=== PATIENT | female | born 1965 | race Caucasian/White ===

== ENCOUNTER 2022-05-25 14:25 | Outpatient (CLI) | payer MEDICAID, SELFPAY ==
--- NOTE | 2022-05-25 14:40 | CRLHL7_ITS ---
For Patients: As a result of the Cures Act, medical imaging exams and procedure reports are released immediately into your electronic medical record. You may view this report before your referring provider. If you have questions, please contact your health care provider. BILATERAL SCREENING MAMMOGRAM WITH COMPUTER-AIDED DETECTION AND TOMOSYNTHESIS TECHNIQUE: CC and MLO views were obtained. These mammographic images have been obtained using full-field digital technique. These mammographic images were interpreted with the benefit of computer-aided detection. Breast Tomosynthesis was used in this interpretation. COMPARISON FILM: Left breast US 01/13/21, 01/06/21 screen, 09/02/18, Right breast US 06/21/17, 06/15/17. FINDINGS: The breasts are heterogeneously dense, which may obscure small masses IMPRESSION: There is no radiographic evidence for malignancy. ASSESSMENT: BI-RADS Category 1: Negative RECOMMENDATION: Routine screening mammogram in 1 year. A lay language report of this examination will be provided to the patient. Bryce Yao M.D. Diagnostic Radiologist [email or web address] PEGGY/Dictated by: Bryce Yao MD @ 05/26/2022 9:05:00 AM (Electronically Signed)
== END 2022-05-25 14:26 | disposition home or self-care (01) ==
LOC: MAMMO 14:25
PROVIDERS: Visit Provider Obstetrics & Gynecology
DX: Z12.31 Encounter for screening mammogram for malignant neoplasm of breast (principal); R92.2 Inconclusive mammogram
CPT/HCPCS: 77063; 77067

== ENCOUNTER 2022-05-25 14:39 | Outpatient (CLI) | payer MEDICAID, SELFPAY ==
[2022-05-25 19:33] LABS: Cholesterol* 277 mg/dL (90-199); HDL Cholesterol* 75 mg/dL (>=50); LDL Cholesterol Calculated 167 mg/dL (<100); Triglycerides* 177 mg/dL (40-149)
== END 2022-05-25 14:40 | disposition home or self-care (01) ==
LOC: NFLDREF 14:40
PROVIDERS: Visit Provider Obstetrics & Gynecology
DX: Z12.31 Encounter for screening mammogram for malignant neoplasm of breast (principal); E78.5 Hyperlipidemia, unspecified
CPT/HCPCS: 77063; 77067; 80061; 87624; 88175

== ENCOUNTER 2022-05-29 14:17 | Emergency (ER) | payer MEDICAID, SELFPAY ==
[2022-05-29 14:31] VITALS: BP 153/94; PULSE 90; RESP 16; TEMP 36.6; O2SAT 98; BMI 24.0
--- NOTE | 2022-05-29 14:53 | ED.GIBLEED ---
HPI - GI Bleed General Chief complaint: GI Bleed Stated complaint: Blood in stool Time Seen by Provider: 05/29/22 14:39 History of Present Illness HPI Narrative: This 56-year-old female comes in because of a few episodes of bright red blood in the toilet when having a bowel movement. She did have a regular history and physical just a couple days ago. It was after this that she began having bright red blood in the toilet. She states that she had a colonoscopy with normal results about 5-7 years ago. She does report some sense of fullness or pressure in her abdomen. She does have pre-existing low back pain radiating down her right leg typical of a lumbar radiculopathy. She has been taking Celebrex for this. She also had a surgery this year on her cervical spine. Related Data Home Medications Medication Instructions Recorded Confirmed acetaminophen 160 mg/5 mL oral 160 mg PO 05/25/22 05/25/22 suspension (Children's Acetaminophen) gabapentin 300 mg capsule 300 mg PO QDAY 05/25/22 05/25/22 Previous Rx's Medication Instructions Recorded celecoxib 200 mg capsule 200 mg PO BID PRN pain #180 caps 05/15/22 Allergies Allergy/AdvReac Type Severity Reaction Status Date / Time No Known Drug Allergies Allergy Verified 05/25/22 13:40 Review of Systems Status of ROS: Reports: 10 or more systems reviewed and unremarkable except as noted in History and below Narrative: Constitutional: No fevers, no weight gain or loss. Eyes: No discharge. No vision changes. HENT: No congestion, no sore throat, no ear pain. Cardiovascular: No chest pain, no palpitations. Respiratory: No shortness of breath, no wheezes, no cough. Gastrointestinal: Mild diffuse abdominal pain, no vomiting, no diarrhea. Bright red blood in the toilet as described above. Genitourinary: No dysuria, no hematuria. Musculoskeletal: Normal range of motion. Chronic low back pain radiating down the right leg. Skin: No rashes, no pruritis. Neurological: No dizziness, weakness, sensory change, speech change. Endo/Heme/Allergies: No bruising or bleeding. No polydipsia. Pysch: no suicidality, no anxiety, no insomnia. All other systems reviewed and are negative. [facility] Medical History (Updated 05/29/22 @ 16:45 by Bipin Hanks MD) Abnormal electromyography Arthralgia Back pain (05/31/15) Cervical vertebral fusion (01/13/22) Fusion of toes History of depression Hypertriglyceridemia Inguinal hernia Lateral epicondylitis Mixed stress and urge urinary incontinence Osteopenia Vitamin D insufficiency Surgical History (Updated 05/25/22 @ 13:55 by Karlene Peres MD) History of pubovaginal sling Status post bunionectomy Status post hernia repair Social History Smoking Status: Former smoker Little interest or pleasure in doing things: not at all Feeling down, depressed, or hopeless: not at all Exam Narrative: Exam Narrative: Constitutional: Well-developed, well-nourished, no acute distress. HEENT: Normocephalic, atraumatic. Neck: Normal range of motion. Nontender. Supple. Heart: Regular. No murmurs. Normal rate. Intact distal pulses. Lungs: Clear to auscultation. No chest discomfort. No wheezes, rhonchi, or rales. Abdomen: Normal bowel sounds. Mild diffuse tenderness. No rebound tenderness. Genitalia: Deferred. Back: No midline tenderness. Normal range of motion. Extremities: Normal range of motion. No injury. Skin: Intact. No rash. Warm. No erythema or pallor. Neurologic: No altered sensation. No weakness. Alert and oriented. Psychiatric: No suicidality. No anxiety or depression. No insomnia. Nursing notes and vitals signs are reviewed. Const: Vital Signs, click to edit/add: Vital Signs - 24 hr 05/29/22 14:31 Temperature 97.9 F Pulse Rate [Right Pulse Oximeter] 90 Respiratory Rate 16 Blood Pressure [Ri ght Upper Arm] 153/94 H Pulse Oximetry 98 Oxygen Delivery Me thod Room Air Course Vital Signs Vital signs: Initial Vital Signs Temperature 97.9 F 05/29/22 14:31 Temperature Source Temporal Artery Scan 05/29/22 14:31 Pulse Rate 90 05/29/22 14:31 Respiratory Rate 16 05/29/22 14:31 Blood Pressure 153/94 H 05/29/22 14:31 Blood Pressure Mean 113 05/29/22 14:31 Blood Pressure Position Sitting 05/29/22 14:31 Pulse Oximetry 98 05/29/22 14:31 Oxygen Delivery Method 05/29/22 14:31 Vital Signs Temperature 97.9 F 05/29/22 14:31 Pulse Rate 90 05/29/22 14:31 Respiratory Rate 16 05/29/22 14:31 Blood Pressure 153/94 H 05/29/22 14:31 Pulse Oximetry 98 05/29/22 14:31 Oxygen Delivery Method 05/29/22 14:31 Temperature 97.9 F 05/29/22 14:31 Pulse Rate 90 05/29/22 14:31 Respiratory Rate 16 05/29/22 14:31 Blood Pressure 153/94 H 05/29/22 14:31 Pulse Oximetry 98 05/29/22 14:31 Oxygen Delivery Method 05/29/22 14:31 MDM - GI Bleed MDM Narrative Medical decision making narrative: This patient comes in report of constipation and some bright red blood in the toilet. She did have a colonoscopy about 5-7 years ago with normal results. She has had some constipation recently. An IV was established and labs were drawn which returned with reassuring findings. Her hemoglobin is satisfactory. CT imaging of the abdomen and pelvis shows a large amount of stool in the colon. There is some non specific thickening of the rectum. Most likely this woman's bright red blood in the toilet is related to hemorrhoid injury or anal fissure. However I explained to her that this cannot be confirmed officially without looking directly with a colonoscopy or flexible sigmoidoscopy. I advised her to follow-up with her primary physician for this study to occur. She is okay to return home. I did describe various treatment strategies for treating constipation. Lab Data Labs: Lab Results 05/29/22 05/29/22 Range/Units 15:36 15:36 WBC 6.00 (4.50-11.00) K/uL RBC 4.05 (4.00-5.20) m/uL Hgb 12.7 (12.0-16.0) gm/dL Hct 37.4 (33.0-51.0) % MCV 92 (80-100) fL MCH 31 (26-34) pg MCHC 34 (32-36) gm/dL RDW Coeff of Ciara 11.2 L (11.5-15.5) % Plt Count 227 (140-440) K/uL Neut % (Auto) 48.9 (42.0-72.0) % Lymph % (Auto) 43.5 (20-44) % Arthur % (Auto) 5.3 (0.0-11.0) % Eos % (Auto) 1.3 (0.0-7.0) % Baso % (Auto) 0.8 (0.0-3.0) % Neut # (Auto) 2.93 (1.7-7.0) K/uL Lymph # (Auto) 2.61 (0.90-2.90) K/uL Arthur # (Auto) 0.30 (0.00-0.90) K/UL Eos # (Auto) 0.08 (0.00-0.50) K/uL Baso # (Auto) 0.05 (0.00-0.30) K/uL Abs Immat Gran (auto) 0.01 (0.00-0.30) K/uL Sodium 140 (135-149) mmol/L Potassium 4.1 (3.6-5.1) mmol/L Chloride 104 (96-114) mmol/L Carbon Dioxide 27 (20-32) mmol/L BUN 18 (7-30) mg/dL Creatinine 0.6 (0.5-1.5) mg/dL Estimated Creat Clear 88.27 Estimated GFR 107 ml/min Glucose 103 (60-115) mg/dL Calcium 9.6 (8.4-10.6) mg/dL Imaging Data CT scan - abdomen: Radiologist's impression: 1. Symmetric wall thickening of the rectum is nonspecific and could be related to underdistention, inflammation, although underlying mass is also possible. Consider correlation with proctoscopy/colonoscopy. 2. Large volume of stool in the colon can be seen with constipation. 3. No other significant CT abnormality in the abdomen or pelvis. Discharge Plan Discharge Clinical Impression: Bright red rectal bleeding, Constipation Patient Disposition: Home, Self-Care Condition: Stable Additional Instructions: Use vtdy-ndx-qkmehtp medicines as needed and directed to treat constipation issues. Follow up with MD for colonoscopy or flexible sigmoidoscopy. Return if worsening symptoms occur. Prescriptions: No Action gabapentin 300 mg capsule 300 mg PO QDAY acetaminophen [Children's Acetaminophen] 160 mg/5 mL suspension 160 mg PO celecoxib 200 mg capsule 200 mg PO BID PRN (Reason: pain) Qty: 180 2RF Follow Up/Referrals: Provider,Not a Local [Primary Care Provider] - Stand Alone Forms: [facility] Info Instructions
--- OUTSIDE RECORDS SUMMARY | 2022-05-29 15:08 | XMS_ITS | Clinical Summary ---
:1965 Author Organization [facility] Address [address] [place] [address] Care Team Providers Name Role Phone Denise Castillo MD Primary Care Provider Source Comments You are receiving this document as you are listed as the primary care provider,follow-up provider, or the patient has been referred to you for consultation.This is in compliance with the Medicare and Medicaid EHR Incentive Program,which states Providers who transition their patient to another setting of careor provider of care or refers their patient to another provider of care shouldprovide summarycare record for each transition of care or referral. [facility] Allergies No known active allergies Medications Medication Sig Dispensed Refills Start Date End Date Status naproxen (AKA Take 1 tablet by 180 3 07/14/2005 Active NAPROSYN) 250 MG mouth daily (every tablet 24 hours). LW Addl Instr:Indicated for: Arthritis venlafaxine (EFFEXOR) Take 1 Tablet by 180 Tablet 3 12/22/2018 Active 37.5 MG tablet mouth two times a day. progesterone Take 1 Capsule by 90 Capsule 3 12/22/2018 Active micronized mouth daily. (PROMETRIUM) 100 MG capsule estradiol Apply 1 Patch to 0 12/22/2018 Ac tive (VIVELLEDOT) 0.05 skin two times a MG/24HR biweekly week. patch omeprazole (PRILOSEC) Take 1 Capsule by 90 Capsule 3 9 Active 20 MG capsule mouth daily. Take 1 hour before a meal. celecoxib (CELEBREX) Take 1 Capsule by 0 12/22/2018 Active 200 MG capsule mouth daily. acyclovir (ZOVIRAX) Take 1 Tablet by 0 12/22/2018 Active 400 MG tablet mouth three times a day as needed. desogestrel-ethinyl Take 1 Tablet by 90 Tablet 3 12/22/2018 Active estradiol (KARIVA) mouth daily. 0.15-0.02/0.01 MG (/5) tablet TURMERIC OR 0 Active loratadine (CLARITIN) Take 10 mg by 0 Active 10 MG tablet mouth daily. omega-3 fatty acids Take 2 g by mouth 0 Active (MAXEPA,FISHOIL) 1000 daily. MG capsule Glucosamine-Chondroit 0 Active -Vit C-Mn (GLUCOSAMINE 1500 COMPLEX OR) valACYclovir Take 1 Tablet by 0 01/27/2019 Active (VALTREX) 1 g tablet mouth two times a day. Active Problems Problem Noted Date Depression 01/13/2019 Back pain 01/13/2019 Postmenopausal status (age-related) (natural) 01/14/20 21 Family history of rheumatoid arthritis 01/13/2019 Neck pain 01/13/2019 Social History Tobacco Use Types Packs/Day Years Used Date Smoking Tobacco: Former Smokeless Tobacco: Never Alcohol Use Standard Drinks/Week Comments Never 0 (1 standard drink = 0.6 oz pure alcoho l) Alcohol Habits Answer Date Recorded How often do you have a drink containing alcohol? Never 01/27/2019 How many drinks containing alcohol do you have on a typical Not asked day when you are drinking? How often do you have six or more drinks on one occasion? 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 Respiratory Rate 16 07/14/2005 12:01 PM ROTARY RIG ENGINE OPERATOR Oxygen Saturation - - Inhaled Oxygen Concentration - - Weight 50.3 kg (111 lb) 01/27/2019 10:49 AM CDT Height - - Body Mass Index - - Plan of Treatment Health Maintenance Due Date Last Done Comments Cervical Cancer Screening 1965 Due Colon Cancer Screening Plan 1965 Due Hep C Screening (Preventive 1965 Services) HepB (1) 1965 Mammogram 1965 COVID-19 Vaccine (#1) 1965 HIV Screening (Preventive 1983 Services) Adult Preventive Visit 1985 Cholesterol 2012 Influenza (#1) 2022 05/04/2020, 06/29/2019, 06/19/2018, Additional history exists DTaP/Tdap/Td (2 - Tdap) 02/15/2025 02/15/2015 Zoster/Shingles Completed 11/05/2019, 07/14/2019 HepA Aged Out No longer eligib le based on patient 's age to complete this topic Hib Aged Out No longer eligib le based on patient 's age to complete this topic IPV (Polio) Aged Out No longer eligib le based on patient 's age to complete this topic MCV4 Aged Out No longer eligib le based on patient 's age to complete this topic Pneumococcal Aged Out No longer eligib le based on patient 's age to complete this topic Care Teams Dental Scheduling Coordinator Relationship Specialty Start Date End Date Denise Castillo MD PCP - General Family Practice 12/14/[address] [place] [id number]
--- OUTSIDE RECORDS SUMMARY | 2022-05-29 15:08 | XMS_ITS | Encounter Summary ---
:1965 Author Organization [facility] Address [address] [place] [address] Care Team Providers Name Role Phone Denise Castillo MD Primary Care Provider Encounter Details Date Type Department Care Team Description 01/30/2019 Notes/Orders Kayla Rheumatol dai Sargent, [address] [place] [address] [address] [facility] [phone] [facility] N [phone] (Wo rk) Social History Tobacco Use Types Packs/Day Years [...] Assigned at Date Recorded Not on file documented as of this encounter Plan of Treatment Not on filedocumented as of this encounter Visit Diagnoses Not on filedocumented in this encounter Care Teams Gunite Mixer Relationship Specialty Start Date End Date Denise Castillo MD PCP - General Family Practice 12/14/[address] [place] [id number] documented as of this encounter
--- OUTSIDE RECORDS SUMMARY | 2022-05-29 15:09 | XMS_ITS ---
:1965 Author Care Team Providers Name Role Phone Reina Mendoza Primary Care Provider Unavailable Allergies Code Code System Name Reaction Severity Status Onset NKDA ? Medications Name Status Start Date Stop Date ? ? celecoxib 200 mg capsule Active ? Not kena ilable ciclopirox 8 % topical solution Active ? Not available gabapentin 300 mg capsule Active ? Not av ailable lorazepam 1 mg tablet Active ? Not availa ble methylprednisolone 4 mg tablets in a dose pack Active ? Not available Problems None recorded. Procedures None recorded. Results Lab Results Date Name Specimen Result Interpretation Description Value Range Status Address ? 06/24/2021 SARS CoV 2 RNA, Nose (nasal ? Result negative ? ? [facility] QL, DEIRDRE+probe, passage) [facility] [place]: [address] , [place] Past Encounters 06/24/2021 Exposure to SARS-CoV-2; Cough Reina Mendoza PA-C: [address], [place] [address], Ph. Social History Tobacco Smoking Status Never Smoker Vaccine List Vaccine Type COVID-19, mRNA, LNP-S, PF, 30 mcg/0.3 mL dose ([employer] 01/25/2021 02/15/2021 influenza, injectable, quadrivalent, pre servative free 06/05/2015 06/24/2017 06/19/2018 05/04/2020 influenza, recombinant, quadrIvalent,inj ectable, preservative free 06/29/2019 influenza, seasonal, injectable 06/11/2005 08/31/2006 06/24/2007 07/29/2010 05/09/2011 06/03/2013 influenza, seasonal, injectable, preserv ative free 08/01/2012 07/06/2014 06/07/2016 Tdap 02/15/2015 zoster recombinant 07/14/2019 11/05/2019 Plan of Care Reminders Provider Appointments None recorded. ? ? Lab None recorded. ? ? Referral None recorded. ? ? Procedures None recorded. ? ? Surgeries None recorded. ? ? Imaging None recorded. ? ? Vitals Blood Pressure 121/78 mm[Hg]
--- OUTSIDE RECORDS SUMMARY | 2022-05-29 15:09 | XMS_ITS | Encounter Summary ---
:[address] [facility] Address [address], [place] [address] Care Team Providers Name Role Phone Denise Castillo MD Primary Care Provider Reason for Visit Reason Comments RESULTS, TEST Encounter Details Date Type Department Care Team Description 01/20/2019 Notes/Orders [facility] [address] Sargent MD [address] [place] [address] [place], [place] [id number] (Wo rk) Social History Tobacco Use Types Packs/Day Years Used Date Smoking Tobacco: Never Assessed Alcohol Habits Answer Date Recorded How often [...] on file documented as of this encounter Progress Notes Faheem Sargent MD - 01/20/2019 8:35 AM CDT Outside records: On 12/16/2018, nerve conduction study demonstrated: 1. 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 There is no further electrical evidence to suggest a right-sided cervical motor radiculopathy, brachial plexopathy or neuropathyotherwise to correlate with this patient symptoms at this time. documented in this encounter Plan of Treatment Not on filedocumented as of this encounter Visit Diagnoses Not on filedocumented in this encounter Care Teams Men'S Locker Room Attendant Relationship Specialty Start Date End Date Denise Castillo MD PCP - General Family Practice 12/14/[address] [place] [id number] documented as of this encounter
--- OUTSIDE RECORDS SUMMARY | 2022-05-29 15:09 | XMS_ITS | Encounter Summary ---
:1965 Author Organization [facility] Address [address], [place] [address] Care Team Providers Name Role Phone Unavailable Primary Care Provider Unavailable Encounter Details Date Type Department Care Team Description 11/06/2003 PN Conversion Only [facility] Sola Srivastava, [address] [facility] [place] [address] Social History Tobacco Use Types Packs/Day Years [...] documented as of this encounter Progress Notes Sola Srivastava APRN, CNP - 11/06/2003 12:01 AM CST Progress Notes signed by Sola Srivastava APRN, CNP at 05/05/05 1415 Author: TAYLOR Dunn Service: (none) Author Type: Nurse Practitioner Filed: 12/18/10 2209 Note Time: 11/06/03 0001 Status: Signed Telemarketing Agent: TAYLOR Dunn (Nurse Practitioner) NAME: ANAY ROWAN MR: [id number] ACCT: [id number] VISIT: [id number] DICTATING CLINICIAN: SOLA SRIVASTAVA NP JOB: [id number] CLINIC PROGRESS NOTE DATE OF VISIT: 11/06/2003 ASSESSMENT: Perioral dermatitis. PLAN: Discussed diagnosis theories with patient and . Recommend continuing gentle cleansing. Cetaphil moisturizer given. We will treat topically due to patient's with erythromycin 2% solution 60 ml with year refills given to be used b.i.d. Also given samples of Dermatop x3 to be applied to facial rash two times a day for five to seven days and if needed will fill prescription for DesOwen cream 30 gm with no refills given to be applied b.i.d. x5-7 days p.r.n. Patient is aware that condition may wax and wane and frequently is seen in patients. Follow up p.r.n. for persistence. FINAL IMPRESSION: Perioral dermatitis. SUBJECTIVE: : 1965. Patient is a 38-year-old Tristanian female who is 37 weeks here for initial evaluation of a rash that started about two months back that is quite itchy around the nose area. She has had some activity below the mouth as well. Washes with Aveeno. Does not use any moisturizer. Has not tried any rmne-oci-zccbpkb products. She had a history of similar type rash years back. Has not been previously . Does use an antidandruff shampoo of Head and Shoulders. PAST MEDICAL HISTORY: Negative for additional chronic illness or surgeries. FAMILY HISTORY: Negative for similar rash. MEDICATIONS: vitamins. ADR/ALLERGIES: NONE. OBJECTIVE: On examination, patient is alert, oriented x3, well-groomed, pleasant, ranrug-dxtdotm-nhaanqr female in no acute distress. She has significant minute papules with scaling with an erythematous base along both alar grooves that is quite inflammatory in nature. There is a slight amount of inflammatory dermatitis in the left perioral area. Sclerae and conjunctivae are clear. Scalp is free of scale and inflammation. Neck, chest, and back are clear. BAS:[id number] C: 11/06/03 12:41 DOCUMENT: [id number] documented in this encounter Plan of Treatment Not on filedocumented as of this encounter Visit Diagnoses Not on filedocumented in this encounter
--- OUTSIDE RECORDS SUMMARY | 2022-05-29 15:09 | XMS_ITS | Encounter Summary ---
:1965 [facility] Address [address], [place] [address] Care Team Providers Name Role Phone Denise Castillo MD Primary Care Provider Reason for Visit Reason Comments Outside Records on File [facility]CS Appt. Needed Encounter Details Date Type Department Care Team Description 01/20/2019 Telephone [facility] [address] [facility], Outside Records on Rheumatology MD Faheem File (NCS); Appt. [address] [facility] [address] [facility] [place] [address] [phone] (Wo rk) Social History Tobacco Use Types [...] on file documented as of this encounter Nursing Notes Bozena Ohara LPN - 01/27/2019 10:41 AM CDT called 01/26 and scheduled pt for appt on 01/27/19 Gisell Hodge MA - 01/25/2019 3:20 PM CDT I left a message for patient to call back. Gisell Hodge MA - 01/24/2019 9:15 AM CDT I left a message for patient to call back. Linda Sosa CMA - 01/20/2019 10:[address] With official [address] interpreter assistance Jacqueline Anderson left voicemail for patient to call back Faheem Sargent MD - 01/20/2019 8:37 AM CDT Patient might need a certified court/medical interpreter. However, her can speak Macanese very well (he has an Lithuanian). Please let her know that I have reviewed the outside records on nerve conduction study. The results suggest that she has electrical evidence of right carpal tunnel syndrome but it seems that the compression of the nerve is at the wrist level, not from the neck level. And therefore, a cortisone injection into the carpal tunnel could potentially be helpful. Please schedule her to see me or a physician kindergarten teacher assistant to have this cortisone injection at her convenient time. documented in this encounter Plan of Treatment Not on filedocumented as of this encounter Visit Diagnoses Not on filedocumented in this encounter Care Teams Plant Technical Specialist Relationship Specialty Start Date End Date Denise Castillo MD PCP - General Family Practice 12/14/[address] [place] [id number] documented as of this encounter
--- OUTSIDE RECORDS SUMMARY | 2022-05-29 15:09 | XMS_ITS | Encounter Summary ---
:1965 Author Organization [facility] Address [address] [place] [address] Care Team Providers Name Role Phone Unavailable Primary Care Provider Unavailable Encounter Details Date Type Department Care Team Description 11/06/2003 PN Conversion Only [facility] [place] [address] [address] [place] [address] Social History Tobacco Use Types Packs/Day Years [...]
--- OUTSIDE RECORDS SUMMARY | 2022-05-29 15:09 | XMS_ITS | Encounter Summary ---
:1965 Author Organization [facility] Address [address], [place] [address] Care Team Providers Name Role Phone Denise Castillo MD Primary Care Provider Reason for Visit Reason Comments CONSULT Encounter Details Date Type Department Care Team Description 01/13/2019 Initial Consult Kayla Sargent, Neck pain ( Primary Dx); Rheumatology MD Faheem Other spondylosis with radiculopathy, ce rvical region; [address] [facility] [place] Cervical radi culopathy at C6; [facility] Cervical radiculopathy at C7; [place], [place] Back tisha n, unspecified back location, unspecified back pain laterality, unspecified chronicity; [id number] Family history of rheumatoid arthritis; [phone] Carpal tunnel s yndrome of right wrist (Work) Social History Tobacco Use Types Packs/Day Years [...] on file documented as of this encounter Last Filed Vital Signs Vital Sign Reading Time Taken Comments Blood Pressure 104/64 01/13/2019 1:28 PM CDT Pulse 69 01/13/2019 1:28 PM CDT Temperature - - Respiratory Rate - - Oxygen Saturation - - Inhaled Oxygen Concentration - - Weight 49.4 kg (109 lb) 01/13/2019 1:28 PM CDT Height - - Body Mass Index - - documented in this encounter Patient Instructions Patient InstructionsPaisansinsup, Tawatchai, MD - 01/13/2019 1:30 PM CDT Have the MRI cervical spines 06/2017 faxed to me at [phone], Attn: Dr. Gonzalez Have nerve conduction study at [facility] faxed to me. documented in this encounter Progress Notes Faheem Sargent MD - 01/13/2019 1:30 PM CDT Subjective: I was requested by Dr. Denise Castillo to evaluate the patient for back pain, family history of rheumatoid arthritis. History of present illness: A 53-year-old female who came in here for an evaluation of chronic back pain, family history of rheumatoid arthritis. The patient has had longstanding of posterior neck and lower back pain for several years. The symptoms of her neck have been more during the past one year. Due to the family history of rheumatoid arthritis in her sister, she would like to make sure that she does not have rheumatoid arthritis. She fell on the stairs when she was at 5 years ago and hit her head. There was no known fracture. There has been no additional injury over her neck or back during adulthood. Her lower back symptoms are usually precipitated by prolonged standing, walking or bending during work. It intermittent radiates to the back of her right thigh down to her leg. This is not associated with paresthesia, muscle weakness, saddle paresthesia or incontinence, dysuria, fever, reduced appetite or weight loss or known history of fracture. The symptom over her neck is posterior and lateralized to the right side. They are usually present when turning her neck while working or at night time. The symptoms frequently radiate down to the right medial scapular or trapezius area. Intermittently at night time, she also feels paresthesia involving right thumb to fourth finger, sparing the fifth finger. However, she could not tell me exactly if the neck and right hand symptoms are consistently present together or these symptoms are present independently. She brought with her a CD of the MRI of the cervical spines performed in 06/2017 without accompanied reports. As my office does not have a CD ROM to open the CD, I requested her to have the re sults faxed to me to review. She was told to have significant cervical spondylosis. She actually underwent cortisone injection approximately a year ago and that first injection was quite helpful for quite sometimes. The second injection was given in August of 2018 but it was not significantly helpfuland he was very temporarily. The natures of the injetction (epidural vs transforaminal) are unknown to her. She has not been evaluated by a neurosurgeon. She has been [facility] her [facility] back [facility]. She recalled that she was [facility] to have a procedure which is suggestive of nerve conduction study in November of 2018. She has not known the result. She recalled that the result might have been forwarded to her primary care provider but she does not know the detailed result. I also requested that she have these results forwared to me to review. She does have clinically apparent osteoarthritis over her hands. I showed her several pictures of swollen joints affected by rheumatoid arthritis and she has not noticed such findings. She has not had a blood test evaluation for rheumatoid arthritis. She reported no unusual skin rashes to suggest psoriasis, significant sicca symptoms, prior ocular symptoms to suggest iritis/uveitis, bleeding tendency, peptic ulcer disease/GI bleeding, known hepatic/renal disease. She takes occasional acetaminophen and that is not adequate. She currently takes Celebrex 200 mg twice a day and this only provides partial relief. Her sister has rheumatoid arthritis. Her father has intermittent gout. Her mother has shoulder and knee arthritis. There is no obvious family history of psoriasis, psoriatic arthritis, iritis/uveitis, spondylitis, inflammatory bowel disease, systemic lupus or lupus related conditions. A complete review of the systems is otherwise unremarkable except for hair thinning, fingers turn white with cold exposure but not associated with tightening of the skin open -wound digital ulcer, occasional acid reflux. Past Medical History: Post menopause. Depression. Back and neck pain. 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 Originally came from [place]. She currently lives in [place], [place]. She neither smokes nor drinks. with a 15-year-old son. Current medications: Please see the most updated medication lists in the EMR. These are reviewed. Adverse drug reactions: No known adverse drug reaction. Physical Examination: BP 104/64 (BP Location: Right Arm, BP Cuff Size: Adult Regular) Pulse 69 Wt 109 lb (49.4 kg) she is General appearance: A middle-aged female who was not in acute physical distress. Skin: No rash, tophus, nodules, open-wound ulcers, Raynaud changes, telangiectasia, sclerodermatous and dermatomyositis skin changes, psoriasis, psoriatic nail or anything suggesting vasculitis, erythema nodosum. Normal nailfold capillaries. HEENT: No psoriasis on the scalp. No conjunctivitis, scleritis or active uveitis or synaechia. Normal extra ocular movements. No sinus tenderness. No malar rash, discoid rash, oral or nasal mucosal ulcers. No nasal septal perforation. Respiratory: Normal respiratory effort. Lungs are clear with good breath sounds. Heart: RR without audible murmurs, rubs, or gallops. Musculoskeletal exams: All 4 extremities were examined. Typical osteoarthritic changes the chart notes and Heberden's nodes at various decrease of her finger knuckle joints. Squaring of bilateral firstCMC joints. No significant synovitis/inflammatory arthritis/dactylitis/enthesitis or effusion in anyjoints. Normal muscle power and tone proximally and distally on both upper and lower extremities. Negative straight leg raising test. Positive Tinel sign over the right wrist joint area. Lateral neck rotation and lateral neck flexion could reproduce her right posterolateral neck areas but I could not reproduce the right hand paresthesia. The right hand paresthesia was reproducible withPhalen???s test and right Tinel???s sign as above. Presence of normal and equal deep tendon reflexesof both upper lower extremities. Laboratory exams: No laboratory evaluation within [facility] system since 2004. Outside records: One 11/15/2018, normal TSH. White blood cells 6.8, hemoglobin 12. Five. On 07/29/2018, glucose 83, serum creatinine 0.9, normal electrolytes. Albumin 4.2. Normal AST/ALT/alkaline phosphatase and total bilirubin. Hemoglobin 12.2, platelet count 259, white blood cells 6.8. Assessment and plans: 1. Multiple joint osteoarthritis: Fingers, cervical and lumbar spines. 2. Family history of rheumatoid arthritis, no convincing evidence of autoimmune inflammatory arthritis including rheumatoid arthritis in this patient. 3. History of possible right C6-C7 radiculopathy versus carpal tunnel syndrome with compressive neuropathy over the right wrist area. Pain is rated as 7.5. RAPID 3 score is 12.7. First of all, I ensured her clinically that I do not see a clinical evidence of rheumatoid arthritis. She has no clinical synovitis or joint effusion to suggest an autoimmune inflammatory condition. She has clinically apparent osteoarthritis over her hands and prior history of degenerative arthritis over the spines. The longstanding posterior neck and lower back pain are mechanical in nature. Although this was not available for me to review, she was told to have significant cervical spondylosis. The posterior necksymptoms are actually reproducible on examination today with neck movement. The right hand symptoms a re suggestive of median nerve distribution. She could not tell me exactly whether her right hand symptoms are always concurrent with a posterior neck symptoms or the hand symptoms present separately for the neck symptoms. If this is radiculopathy, the symptoms are suggestive of right C5 and C6 radiculo pathies. However, if she has no radiculopathy, the right hand symptoms are most likely secondary to carpal tunnel syndrome with the compression at the right wrist level. This latter clinical impressionis suggested by positive Phalen's test and Tinel's sign on examination today. She recently had a nerve conduction study. She has not been told about the results. I discussed with her and her about my clinical impression as above. I told her that she doesnot have rheumatoid arthritis despite a strong family history. I counseled her about symptoms and physical findings to suggest rheumatoid arthritis and she will let me know when this is present at any time and I will immediately get her back here for a re-evaluation. I did not offer blood test evaluation for rheumatoid arthritis due to the absence of clinical suspicion. This was agreeable with the patient. I told the patient to obtain the results of the MRI of the cervical spines in 06/2017 and the results of the recent nerve conduction study and to have them faxed to me to review. If the nerve conduction study does not show evidence of radiculopathy, I will suggest cortisone injection into the carpal tunnel area and I can help perform this procedure for her. However, if the nerve conduction study shows evidence of right C5 and/or C6 radiculopathy, I will suggest that the patient go back to [facility] to consider an evaluation with a neurosurgeon for a possible surgical intervention as she has not had a significant improvement with medical treatment and recent cortisone injection has not been adequate. For long-term management of cervical spondylosis, I do not have additional medical treatment recommendation. She will continue physical therapy, the use of as needed acetaminophen or anti-inflammatory medication, and possible additional use of tricyclic antidepressant or anti-epileptic medication such as gabapentin and I will leave these to her provider at the [facility]. I told her that I will review the requested outside records of MRI cervical spines and nerve conduction study and will let her know about my further recommendation as above. Total time 60 minutes, 40 minutes counseling. CC: Denise Castillo M.D. [address] [place] [id number] Addendum: Additional outside records: On 04/04/2015, x-ray of the cervical spines demonstrated scoliosis. There is curvature of the cervical spine convex to was the right and thorax 6 pt convex to the left. No subluxation. Disc spaces appear normal. No fracture deformities visible. Prevertebral soft tissue thickness is normal. The cervical lordosis is straighten from C2-C5. X-rays of the lumbar spines demonstrated five lumbar vertebra. Mild scoliotic curve involving the right thoracolumbar spine, which is convex towards the right. There is no subluxation. The disc spaces are normal. No intrinsic bony lesions. A moderate large amount of colonic stool in the transverse colon, splenic flexure and hepatic flexure. On 04/04/2015, negative Lyme serology. On 07/05/2017, MRI of the cervical spines demonstrated: Degenerative cervical spondylosis with the following findings: 1. Posterior and right para midline annular tear and disc herniation, C5-C6, indenting the spinal cord ventrally. This appears increased in size compared to the prior studies. There is increased protrusion of the disc at these level with maximum extension. 2. Dorsal bulging of the C4-5 disc, indenting the spinal cord, increased with maximum extension. 3. Dorsal annular bulging at C3-4, with increased disc protrusion and bulging associated with maximum extension. On 06/24/2016, ESR 8. On 06/24/2017, ESR 7. Negative rheumatoid factor. On 04/04/2015, negative rheumatoid factor. On 07/29/2018, white blood cells 6.8, hemoglobin 12.2, platelet count 250 night. Glucose 83. Serum creatinine 0.6. Normal AST/ALT. 25 hydroxy vitamin-D 49. documented in this encounter Plan of Treatment Not on filedocumented as of this encounter Visit Diagnoses Diagnosis Neck pain - Primary Cervicalgia Other spondylosis with radiculopathy, ce rvical region ([facility]) Cervical radiculopathy at C6 Brachial neuritis or radiculitis nos Cervical radiculopathy at C7 Brachial neuritis or radiculitis nos Back pain, unspecified back location, un specified back pain laterality, unspecified chronicity Family history of rheumatoid arthritis Family history of arthritis Carpal tunnel syndrome of right wrist Carpal tunnel syndrome documented in this encounter Care Teams Food Quality Technician Relationship Specialty Start Date End Date Denise Castillo MD PCP - General Family Practice 12/14/[address] [place] [address] documented as of this encounter
--- OUTSIDE RECORDS SUMMARY | 2022-05-29 15:09 | XMS_ITS | Encounter Summary ---
:1965 Author Organization [facility] Address [address] [address] Care Team Providers Name Role Phone Unavailable Primary Care Provider Unavailable Encounter Details Date Type Department Care Team Description 12/30/2010 PN Conversion Only CONVERSION CONVERSION Social History Tobacco Use Types Packs/Day Years [...]
--- OUTSIDE RECORDS SUMMARY | 2022-05-29 15:09 | XMS_ITS | Clinical Summary ---
:1965 Author Organization [employer] [facility] [place] [address] Care Team Providers Name Role Phone Mallory Ferguson MD Primary Care Provider Allergies No known active allergies Medications Medication Sig Dispensed Refills Start End Status Date Date omeprazole (PRILOSEC) Take 20 mg by 0 12/23/19 Active 20 mg Delayed-Release mouth once 19 capsule daily if needed. valACYclovir (VALTREX) TAKE TWO 0 02/26/20 Active 1 gram tablet TABLETS BY 20 MOUTH AT ONSET AND TWO TABLETS 12 HOURS LATER. TAKE THE FIRST TWO TABLETS AT THE ONSET OF PAIN AND TINGLING IN THE LIP loratadine (CLARITIN) Take 10 mg by 0 Active 10 mg tablet mouth once daily. Docosahexanoic Take 2 g by 0 Act shar Acid-Eicosapent mouth once 120-180 mg cap daily. cholecalciferol Take 1,000 0 Act shar (VITAMIN D3) 1,000 units by mouth unit tablet once daily. ascorbic acid, vitamin Take 1,000 mg 0 Active C, (VITAMIN C) 1,000 by mouth 2 mg tablet times daily. TURMERIC ORAL Take 1 Tablet 0 Ac tive by mouth once daily. multivitamin with Take 1 Tablet 0 Active minerals by mouth once (MULTI-VITAMIN daily. W/MINERALS ORAL) acetaminophen Take 20.3 mL 472 mL 0 01/14/20 Act shar (TYLENOL) 160 mg/5 mL (649.6 mg) by 22 suspensionIndications: mouth every 4 Acute post-operative hours if pain needed (pain). cyclobenzaprine Take 1 Tablet 15 Tablet 0 01/15/20 Active (FLEXERIL) 5 mg (5 mg) by 22 tabletIndications: mouth every 8 Acute post-operative hours if pain needed for Muscle Spasm. gabapentin (NEURONTIN) Take 1 Capsule 90 Capsule 3 04/03/20 Active 300 mg (300 mg) by 22 capsuleIndications: mouth at Cervical radiculopathy bedtime. methylPREDNISolone Take by mouth 21 Tablet 0 01/16/20 Discontinued (MEDROL DOSEPAK) 4 mg as instructed (*Med tabletIndications: per packaging. complete/Regime Cervical stenosis of n spine complete/L evel of care ch sarath) oxyCODONE (ROXICODONE) Take 5 mL (5 100 mL 0 01/16/2005/02 Discontinued 5 mg/5 mL mg) by mouth (*Med solutionIndications: every 4 hours complete/Regime Acute post-operative if needed for n pain Pain. complete/L evel of care ch sarath) Active Problems Problem Noted Date Vitamin D insufficiency 01/13/2022 Depression 01/13/2019 Back pain 05/31/2015 Urinary incontinence 06/29/2011 Overview: Formatting of this note might be differe nt from the original. (Problem list name updated by automated process. Provider to review and confirm.) Hyperlipidemia LDL goal <160 01/14/2011 Esophageal reflux 06/10/2007 Sciatica 06/10/2007 Encounters Date Type Specialty Care Team Description 05/29/2022 Telephone Eulogio Sharpe Questio ns MD 05/26/2022 Lab Requisition Karlene Peres MD 03/31/2022 Refill Eulogio Sharpe, Refill Request (Gabapentin) from Last 3 Months Family History Medical History Relation Name Comments Rheum arthritis Sister Relation Name Status Comments Sister Social History Tobacco Use Types Packs/Day Years Used Date Former Smoker Smokeless Tobacco: Never Used Tobacco Cessation: Counseling Given: Yes Comments: 25-30 yrs ago quit Alcohol Use Standard Drinks/Week Comments Not Currently 0 (1 standard drink = 0.6 oz pure alcoho l) Sex Assigned at Date Recorded Not on file Obstetrics History Last Filed Vital Signs Vital Sign Reading Time Taken Comments Blood Pressure 123/69 01/15/2022 8:44 AM CDT Pulse 62 01/15/2022 8:44 AM CDT Temperature 36.6 ??C (97.9 ??F) 01/15/2022 8:44 AM CDT Respiratory Rate 16 01/15/2022 8:44 AM CDT Oxygen Saturation 99% 01/15/2022 8:44 AM CDT Inhaled Oxygen Concentration - - Weight 50.7 kg (111 lb 12.8 oz) 01/13/2022 6:52 AM CDT Height 149.9 cm (4' 11) 01/13/2022 6:52 AM CDT Body Mass Index 22.58 01/13/2022 6:52 AM CDT Plan of Treatment Health Maintenance Due Date Last Done Comments Tdap 1978 Depression screening for age 12+ 1979 BMI (ht and wt on same day) for age 18+ 1985 Hepatitis C screening for age 18-79 1985 Tetanus booster 1987 Colonoscopy through age 75 2012 Lipids for age 45-75 2012 Mammogram for age 45-75 2012 Zoster (shingles) series for age 50+ (1 of 2017 2) Pap test for age 21-65 06/24/2020 06/24/2017, 06/24/2017 COVID-19 vaccine series (3 - Booster for 04/12/2021 021, 01/25/2021 Pfizer series) Influenza for age 50-64 04/30/2022 Medical Devices Implanted Type Area Non Clinical Advisor Device Shelf Model / Identifier Expiration Serial / Lot Date 3.0 Mm Carito Screws, Titanium Right: [id number] / Implanted: Qty: 1 on 08/11/2021 by Rocael Gutiérrez DPM at [facility] Foot / [id number] [place] View Self Starting Variable Screw 4.0x12mm N/A: Spine [id number] / Implanted: Qty: 6 on 01/13/2022 by Marlene Benjamin MD at [facility] / Description: [place]IEW SELF STARTING [place] RIABLE SCREW 4.0X12MM Results Not on filefrom Last 3 Months Insurance Payer Benefit Plan / Subscriber ID Effective Dates Phone Addre ss Type Group [place] [id number] 2021-Present [address] [place] [address] Advance Directives Latest Code Status on File Code Status Date Activated Date Inactivated Comments Full Code 01/13/2022 12:15 PM 01/15/2022 6:58 PM Code Status Discussion: Unable to Assess Preferences, Provid er to review later Full Code 08/11/2021 6:39 AM 08/11/2021 1:59 PM Code Status Discussion: Unable to Assess Preferences, Provid er to review later Care Teams Coordinating Producer Relationship Specialty Start Date End Date Mallory Ferguson MD PCP - General 09/02/20 [address] [place] [address]
--- OUTSIDE RECORDS SUMMARY | 2022-05-29 15:09 | XMS_ITS | Encounter Summary ---
:1965 Author Organization [facility] Address [address], [place] [address] Care Team Providers Name Role Phone Unavailable Primary Care Provider Unavailable Encounter Details Date Type Department Care Team Description 07/14/2005 Office Visit [facility] Zulema Mustafa, [address] [address] [facility] [place] [address] [place] [phone] [place], [place] [address] Social History Tobacco Use Types Packs/Day Years [...] Sign Reading Time Taken Comments Blood Pressure 107/68 07/14/2005 12:01 PM PLAYGROUND MONITOR Pulse 73 07/14/2005 12:01 PM PLAYGROUND MONITOR Temperature 36.3 ??C (97.3 ??F) 07/14/2005 12:01 PM ORAL C: 36.3 C PLAYGROUND MONITOR Respiratory Rate 16 07/14/2005 12:01 PM PLAYGROUND MONITOR Oxygen Saturation - - Inhaled Oxygen Concentration - - Weight - - Height - - Body Mass Index - - documented in this encounter Progress Notes Zulema Mustafa PA-C - 07/14/2005 12:01 AM CST Progress Notes signed by Zulema Mustafa PA-C at 07/20/05 0748 Author: Zulema Mustafa PA-C Service: (none) Author Type: Resource Filed: 12/19/10 0936 Note Time: 07/14/052018 Status: Signed Client Care Representative: Zulema Mustafa PA-C (Resource) NAME: ANAY ROWAN MR: [id number] ACCT: [id number] VISIT: [id number] DICTATING CLINICIAN: ZULEMA MUSTAFA PA-C JOB: [id number] CLINIC PROGRESS NOTE DATE OF VISIT: 07/14/2005 SUBJECTIVE: A 40-year-old female who twisted her left foot today. Rates the pain as an 8 out of 10. Denies any radiation of pain, numbness or tingling. No prior history of injury. PAST MEDICAL HISTORY: None. MEDICATIONS: Reviewed by myself in Last[employer]. ADR/ALLERGIES: REVIEWED BY MYSELF IN [employer]ST[employer]. SOCIAL HISTORY: , here with . Does not smoke. OBJECTIVE: VS: BP: 107/68. T: 97.4. P: 73. R: 16. Well-developed, well-nourished female in no acute distress, alert and cooperative. LEFT FOOT: Skin is warm and dry. Dorsalis and pedal pulse intact. Capillary refill and sensation are intact. She has mild tenderness to palpation over the midfoot. No irregularity appreciated. No tenderness over the ankle area, tibia or fibula. X-rays ordered and reviewed by myself as negative. ASSESSMENT: Sprain to left foot. PLAN: Bert wrap to the area as directed. She was offered crutches, but declined at this time. If she decides that she would like crutches tomorrow, she may return to have them. Otherwise, should wear a proper shoe with a back, ice to the area, ibuprofen and follow up as needed. LAG:[id number] C: 07/15/05 01:51 DOCUMENT: [id number] GROUND MONITOR documented in this encounter Plan of Treatment Not on filedocumented as of this encounter Procedures Procedure Name Priority Date/Time Associated Diagnosis Comme nts XR FOOT LT 3+ VIEWS Routine 07/14/2005 12:29 PM R esults for this PLAYGROUND MONITOR procedure are i n the results section. documented in this encounter Results XR Foot Lt 3+ Views (07/14/2005 12:29 PM PLAYGROUND MONITOR) Anatomical Region Laterality Modality Lower Extremity, Foot Other Specimen (Source) Anatomical Location Collection Method / Collectio n Time Received Time / Laterality Volume Narrative 07/14/2005 12:29 PM PLAYGROUND MONITOR There is a mild hallux valgus deformity with a small to moderate associated bunion. ??No other abnormalit ies are identified. 100844/pb Dictating DARIAN AVELAR RADIOLOGIST Procedure Note Darian Perez - 10/30/2016 There is a mild hallux valgus deformity with a small to moderate associated bunion. No other abnormalitie s are identified. 533420/pb Dictating DARIAN AVELAR RADIOLOGIST Zulema Mustafa PA-C RAD GD documented in this encounter Visit Diagnoses Not on filedocumented in this encounter
--- OUTSIDE RECORDS SUMMARY | 2022-05-29 15:09 | XMS_ITS | Encounter Summary ---
:1965 Author Organization [facility] Address [address] [place] [address] Care Team Providers Name Role Phone Denise Castillo MD Primary Care Provider Reason for Referral (Routine) - Closed Specialty Diagnoses / Procedures Referred By Contact Refer red To Contact Diagnoses Carpal tunnel syndrome of right wrist Faheem Sargent Procedures Methylprednisolone 40 Mg Inj [address] [place], [place] [address] Referral ID Status Reason Start Date Expiration Date Visits Requ ested Visits Authorized [id number] Closed 01/27/2019 04/27/2020 1 1 Reason for Visit Reason Comments Follow-up Encounter Details Date Type Department Care Team Description 01/27/2019 Office Visit Kayla Rosetta, Carpal tunnel syndrome of right wrist (Primary Dx); Rheumatology MD Faheem Cervical radiculopathy at C[address] [place] [address] [facility] [phone] [place], [place] [id number] Social History Tobacco Use Types Packs/Day Years [...] Pulse 79 01/27/2019 10:49 AM CDT Temperature - - Respiratory Rate - - Oxygen Saturation - - Inhaled Oxygen Concentration - - Weight 50.3 kg (111 lb) 01/27/2019 10:49 AM CDT Height - - Body Mass Index - - documented in this encounter Progress Notes Faheem Sargent MD - 01/27/2019 10:45 AM CDT SUBJECTIVE: For right carpal tunnel cortisone injection. History of present illness: I saw her a few weeks ago for an evaluation to rule out rheumatoid arthritis. She has no clinical rheumatoid arthritis. She was found to have clinical cervical spondylosis with as well symptoms on the right hand consistent with dermatomal distributions of right C5 in maybe C6. However, it was not clear whether the radiculopathy is the result of nerve compression at the cervical spine level versus carpal tunnel syndrome with the compression at the wrist level. She had had a nerve conduction study at [facility] in November of 2018. She did not recall the results. She alsohad MRI of the cervical spines a few years ago and I did not have these results to review. She ventrally forwarded me this information. The nerve conduction study was performed on 12/16/2018.The results demonstrated right-sided median motor neuropathy at the wrist: Graded as moderate. Thereis no further electrical evidence to suggest a right-sided cervical motor radiculopathy, brachial ple xopathy or neuropathy otherwise to correlate with this patient symptoms at this time. The MRI of the cervical spines were performed on 07/05/2017 and the results demonstrated: Degenerative cervical spondylosis with the following findings: ?? 1. Posterior and right para midline annular tear and disc herniation, C5-C6, indenting the spinal cord ventrally. This appears increased in size compared to the prior studies. There is increased protrusion of the disc at these level with maximum extension. ?? 2. Dorsal bulging of the C4-5 disc, indenting the spinal cord, increased with maximum extension. ?? 3. Dorsal annular bulging at C3-4, with increased disc protrusion and bulging associated with maximum extension. In therefore, as the patient to come back here to consider a carpal tunnel cortisone injection as she is quite symptomatic especially at the night time. Past medical history, family and social history, current medications and adverse reactions were updated in EMR. Physical exams: BP 115/63 (BP Location: Left Arm, BP Cuff Size: Adult Regular) Pulse 79 Wt 111 lb (50.3 kg) General appearance: A middle-aged female who was not in acute physical distress. No other examination was performed. Assessment and plan: 1. Cervical spondylosis. 2. Right carpal tunnel syndrome with nerve compression at the wrist level suggested by nerve conduction study. Pain is rated as 8. RAPID 3 score is 16.5. I discussed with the patient about my clinical impression as above. The nerve conduction study suggested that she has no radiculopathy but the right hand paresthesia secondary to carpal tunnel syndromewith nerve compression at the wrist level. However, I think the cervical spondylosis helps explainedher posterior neck pain and she will continue to have a follow-up with her [facility] for this latter problem. For the carpal tunnel syndrome, a cortisone injection could be considered and this has been shown harry better than wearing wrist splint on the recent randomized controlled trial. This was offered to her and she agreed to pursue. Consent was verbally obtained. Indication, contraindications and complications including pain/bleeding, infection were discussed. The patient agreed to pursue. Right volar wrist was prepared in a sterile fashion. Ethyl chloride spray was used as a local anesthetic agent. 40 mg of methylprednisolone was injected into right carpal tunnel area without acute complication. I told her to continue to wear right wrist splint as it might take a few weeks before cortisone injection is helpful. If this is not helpful all the benefit is only brief and temporarily, the next step is to consider a carpal tunnel surgical release. Follow-up again as needed. Total time is 15 minutes, 8 minutes counseling, 5 minutes procedure. documented in this encounter Plan of Treatment Not on filedocumented as of this encounter Visit Diagnoses Diagnosis Carpal tunnel syndrome of right wrist - Primary Carpal tunnel syndrome Cervical radiculopathy at C6 Brachial neuritis or radiculitis nos documented in this encounter Care Teams Fender Finisher Relationship Specialty Start Date End Date Denise Castillo MD PCP - General Family Practice 12/14/[address] [place] [id number] documented as of this encounter
--- NOTE | 2022-05-29 15:19 | CRLHL7_ITS ---
For Patients: As a result of the Century Cures Act, medical imaging exams and procedure reports are released immediately into your electronic medical record. You may view this report before your referring provider. If you have questions, please contact your health care provider. INDICATION: Pain, rectal bleeding. TECHNIQUE: CT abdomen and pelvis acquired with 56 mL Isovue 370 IV contrast. Coronal and sagittal reformats were generated. COMPARISON: None. FINDINGS: Lower chest: Unremarkable. Liver: Unremarkable. Gallbladder and bile ducts: Unremarkable. No stones or inflammation. No biliary dilation. Spleen: Unremarkable. Pancreas: Unremarkable. Adrenal glands: Unremarkable. No nodules. Kidneys and Ureters: Unremarkable. No suspicious masses, stones, or hydronephrosis. Lymph Nodes and Retroperitoneum: Unremarkable. Vasculature: Incidental note is made of a circumaortic left renal vein, a normal variant. GI tract: Symmetric wall thickening of the rectum. Large volume of colonic stool. Small bowel loops are normal in caliber. Normal appendix. Peritoneum/Abdominal Wall: Unremarkable. No mass or infiltration. No free air or free fluid. Pelvic Viscera: Unremarkable. Bladder: Unremarkable. Bones: Unremarkable for age. IMPRESSION: 1. Symmetric wall thickening of the rectum is nonspecific and could be related to underdistention, inflammation, although underlying mass is also possible. Consider correlation with proctoscopy/colonoscopy. 2. Large volume of stool in the colon can be seen with constipation. 3. No other significant CT abnormality in the abdomen or pelvis. Please note that all CT scans at this facility use dose modulation, iterative reconstruction, and/or weight-based dosing when appropriate to reduce radiation dose to as low as reasonably achievable. Dictated by Leon Beaver MD @ 05/29/2022 4:18:08 PM (Electronically Signed)
[2022-05-29 15:51] LABS: Basophils Absolute Auto 0.05 K/uL (0.00-0.30); Basophils Percent Auto 0.8 % (0.0-3.0); Eosinophils Absolute Auto 0.08 K/uL (0.00-0.50); Eosinophils Percent Auto 1.3 % (0.0-7.0); Hematocrit 37.4 % (33.0-51.0); Hemoglobin* 12.7 gm/dL (12.0-16.0); Immature Granulocytes Abs Auto 0.01 K/uL (0.00-0.30); Lymphocytes Absolute Auto 2.61 K/uL (0.90-2.90); Lymphocytes Percent Auto 43.5 % (20-44); Mean Corpuscular HGB Conc 34 gm/dL (32-36); Mean Corpuscular Hemoglobin 31 pg (26-34); Mean Corpuscular Volume 92 fL (80-100); Monocytes Percent Auto 5.3 % (0.0-11.0); Neutrophils Absolute Auto 2.93 K/uL (1.7-7.0); Neutrophils Percent Auto 48.9 % (42.0-72.0); Platelet Count* 227 K/uL (140-440); RDW Coefficient of Variation % 11.2 % (11.5-15.5); Red Blood Count 4.05 m/uL (4.00-5.20)
[2022-05-29 15:55] LABS: Slide Review Reflex No
[2022-05-29 16:01] LABS: Chloride* 104 mmol/L (96-114); Sodium* 140 mmol/L (135-149)
[2022-05-29 16:02] LABS: Potassium* 4.1 mmol/L (3.6-5.1)
[2022-05-29 16:05] LABS: Blood Urea Nitrogen* 18 mg/dL (7-30); Calcium* 9.6 mg/dL (8.4-10.6); Carbon Dioxide* 27 mmol/L (20-32); Glucose* 103 mg/dL (60-115)
[2022-05-29 16:18] LABS: Creatinine* 0.6 mg/dL (0.5-1.5); Est. Creatinine Clearance* 88.27; Estimated Glomerular Filt Rate 107 ml/min
== END 2022-05-29 16:59 | disposition home or self-care (01) ==
PROVIDERS: Emergency Provider Emergency Medicine Emergency Medical Services
DX: K62.5 Hemorrhage of anus and rectum (principal); K59.00 Constipation, unspecified
CPT/HCPCS: 36415; 74177; 80048; 85025; 99284; 99285; Q9967

== ENCOUNTER 2022-06-04 15:04 | Outpatient (CLI) | payer MEDICAID, SELFPAY ==
--- OUTSIDE RECORDS SUMMARY | 2022-06-04 15:12 | XMS_ITS | Encounter Summary ---
:1965 Author Organization [facility] Address [address] [place] [address] Care Team Providers Name Role Phone Denise Castillo MD Primary Care Provider Reason for Referral (Routine) - Closed Specialty Diagnoses / Procedures Referred By Contact Refer red To Contact Diagnoses Carpal tunnel syndrome of right wrist Faheem Sargent Procedures Methylprednisolone 40 Mg Inj [address] [place], [place] [address] Referral ID Status Reason Start Date Expiration Date Visits Requ ested Visits Authorized [id number] Closed 01/27/2019 04/27/2020 1 1 Reason for Visit Reason Comments Follow-up Encounter Details Date Type Department Care Team Description 01/27/2019 Office Visit Kayla Rosetta, Carpal tunnel syndrome of right wrist (Primary Dx); Rheumatology MD Faheem Cervical radiculopathy at C[address] [place] [address] [facility] [phone] [place], [place] [id number] Social History Tobacco Use Types Packs/Day Years [...] had had a nerve conduction study at [facility] in November of 2018. She did [...] continue to have a follow-up with her [facility] for this latter problem. For the [...] nos documented in this encounter Care Teams System Safety Manager Relationship Specialty Start Date End Date Denise Castillo MD PCP - General Family Practice 12/14/[address] [place] [address] documented as of this encounter
--- OUTSIDE RECORDS SUMMARY | 2022-06-04 15:12 | XMS_ITS | Encounter Summary ---
:1965 Author Organization [facility] Address [address], [place] [address] Care Team Providers Name Role Phone Denise Castillo MD Primary Care Provider Reason for Visit Reason Comments Outside Records on File NCS Appt. Needed Encounter Details Date Type Department Care Team Description 01/20/2019 Telephone [facility] Outside Records on Rheumatology MD Faheem File (NCS); Appt. 38[address] [facility] 38[address] [facility] [address] [facility] [place] [address] [phone] (Wo rk) Social History Tobacco Use Types [...] CMA - 01/20/2019 10:29 AM CDT With interpreter and translator assistance Jacqueline Anderson left voicemail for patient to call back Faheem Sargent MD - 01/20/2019 8:37 AM CDT Patient might need a historical interpreter. However, her can speak Citizen Of [place] very well (he has an [place]ian). Please let her know that I have [...] her to see me or a physician retail loan originator assistant to have this cortisone injection at her convenient time. documented in this encounter Plan of Treatment Not on filedocumented as of this encounter Visit Diagnoses Not on filedocumented in this encounter Care Teams Media Consultant Relationship Specialty Start Date End Date Denise Castillo MD PCP - General Family Practice 12/14/[address] [place] [address] documented as of this encounter
--- OUTSIDE RECORDS SUMMARY | 2022-06-04 15:12 | XMS_ITS | Encounter Summary ---
:1965 [facility] Address [address], [place] [address] Care Team Providers Name Role Phone Denise Castillo MD Primary Care Provider Reason for Visit Reason Comments RESULTS, TEST Encounter Details Date Type Department Care Team Description 01/20/2019 Notes/Orders [facility] [address] Or[place] Sargent MD [address] [place] [address] [place], [place] [phone] (Wo rk) Social History Tobacco Use Types [...] on filedocumented in this encounter Care Teams Arc Welder Apprentice Relationship Specialty Start Date End Date Denise Castillo MD PCP - General Family Practice 12/14/[address] [place] [address] documented as of this encounter
--- OUTSIDE RECORDS SUMMARY | 2022-06-04 15:12 | XMS_ITS | Encounter Summary ---
:1965 Author Organization [facility] Address [address] [place] [address] Care Team Providers Name Role Phone Denise Castillo MD Primary Care Provider Encounter Details Date Type Department Care Team Description 01/30/2019 Notes/Orders Kayla Rheumatol dai Sargent, [address] [place] [address] [address] [facility] [phone] [facility] N [id number] (Wo rk) Social History Tobacco Use Types [...] on filedocumented in this encounter Care Teams Clothes Model Relationship Specialty Start Date End Date Denise Castillo MD PCP - General Family Practice 12/14/[address] [place] [address] documented as of this encounter
--- OUTSIDE RECORDS SUMMARY | 2022-06-04 15:12 | XMS_ITS | Encounter Summary ---
:1965 Author Organization [facility] Address [address], [place] [address] Care Team Providers Name Role Phone Unavailable Primary Care Provider Unavailable Encounter Details Date Type Department Care Team Description 07/14/2005 Office Visit [facility] Zulema Mustafa, [address] [facility] [place] [address] [address] [phone] [place], [place] [address] Social History Tobacco Use [...] Comments Blood Pressure 107/68 07/14/2005 12:01 PM CHIEF OF SAFETY AND PROTECTION Pulse 73 07/14/2005 12:01 PM [employer] SAF[employer]Y [employer] PROTECTION Temperature 36.3 ??C (97.3 ??F) 07/14/2005 12:01 PM ORAL C: 36.3 C [employer] SAFETY [employer] PROTECTION Respiratory Rate 16 07/14/2005 12:01 PM [employer] SAFETY AND PROTECTION Oxygen Saturation - - Inhaled Oxygen Concentration - - Weight - - Height - - Body Mass Index - - documented in this encounter Progress Notes Zulema Mustafa PA-C - 07/14/2005 12:01 AM CST Progress Notes signed by Zulema Mustafa PA-C at 07/20/05 0748 Author: Zulema Mustafa PA-C Service: (none) Author Type: Resource Filed: 12/19/10 0936 Note Time: 07/14/052018 Status: Signed Residential Plumber: Zulema Mustafa PA-C (Resource) NAME: ANAY ROWAN MR: [id number] ACCT: [id number] VISIT: [id number] DICTATING CLINICIAN: ZULEMA MUSTAFA PA-C JOB: [id number] CLINIC PROGRESS NOTE DATE OF VISIT: 07/14/2005 [...] area, ibuprofen and follow up as needed. [id number] C: 07/15/05 01:51 DOCUMENT: [id number] F OF SAFETY AND PROTECTION documented in this encounter Plan of Treatment Not on filedocumented as of this encounter Procedures Procedure Name Priority Date/Time Associated Diagnosis Comme nts XR FOOT LT 3+ VIEWS Routine 07/14/2005 12:29 PM R esults for this [employer]F [employer] SAFETY AND PROTECTION procedure are i n the results section. documented in this encounter Results XR Foot Lt 3+ Views (07/14/2005 12:29 PM [employer] SAFETY [employer] PROTECTION) Anatomical Region Laterality Modality Lower Extremity, Foot Other Specimen (Source) Anatomical Location Collection Method / Collectio n Time Received Time / Laterality Volume Narrative 07/14/2005 12:29 PM [employer] SAFETY AND PROTECTION There is a mild hallux valgus deformity with a small to moderate associated bunion. ??No other abnormalit ies are identified. [id number]/pb Dictating DARIAN AVELAR RADIOLOGIST Procedure Note Darian Perez - 10/30/2016 There is a mild hallux valgus deformity with a small to moderate associated bunion. No other abnormalitie s are identified. [id number]/pb Dictating DARIAN AVELAR RADIOLOGIST Zulema Mustafa PA-C RAD GD documented in this encounter Visit Diagnoses Not on filedocumented in this encounter
--- OUTSIDE RECORDS SUMMARY | 2022-06-04 15:12 | XMS_ITS | Clinical Summary ---
:1965 Author Organization [facility] Address [address] [place] [address] Care Team Providers Name Role Phone Denise [...] for each transition of care or referral. [facility] Allergies No known active allergies Medications Medication [...] 07/14/2005 12:01 PM ORAL C: 36.3 C BISQUE KILN DRAWER Respiratory Rate 16 07/14/2005 12:01 PM BISQUE KILN DRAWER Oxygen Saturation - - Inhaled Oxygen Concentration [...] age to complete this topic Care Teams Batch Heat Treat Operator Relationship Specialty Start Date End Date Denise Castillo MD PCP - General Family Practice 12/14/[address] [place] [address]
--- OUTSIDE RECORDS SUMMARY | 2022-06-04 15:12 | XMS_ITS | Encounter Summary ---
:1965 Author Organization [facility] Address [address] [address] Care Team Providers Name Role Phone Unavailable Primary Care Provider Unavailable Encounter Details Date Type Department Care Team Description 11/06/2003 PN Conversion Only [facility] Sola Srivastava, [address] [facility] [place] [address] Social History Tobacco Use Types Packs/Day Years [...] 2209 Note Time: 11/06/03 0001 Status: Signed Manager Analysis: TAYLOR Dunn (Nurse Practitioner) NAME: ANAY ROWAN MR: [id number] ACCT: [id number] VISIT: [id number] DICTATING CLINICIAN: SOLA SRIVASTAVA NP JOB: [id number] CLINIC PROGRESS NOTE DATE OF VISIT: 11/06/2003 [...] SUBJECTIVE: : 1965. Patient is a 38-year-old [place] female who is 37 weeks here for initial evaluation of a rash that started about two months back that is quite itchy around the nose area. She has had some activity below the mouth as well. Washes with Aveeno. Does not use any moisturizer. Has not tried any ogpt-ikt-rlhtgfh products. She had a history of similar type rash years back. Has not been previously . Does use an antidandruff shampoo of Head and Shoulders. PAST MEDICAL HISTORY: Negative for additional chronic illness or surgeries. FAMILY HISTORY: Negative for similar rash. MEDICATIONS: vitamins. ADR/ALLERGIES: NONE. OBJECTIVE: On examination, patient is alert, oriented x3, well-groomed, pleasant, paxttl-stizesf-xsmrkki female in no acute distress. She has significant minute papules with scaling with an erythematous base along both alar grooves that is quite inflammatory in nature. There is a slight amount of inflammatory dermatitis in the left perioral area. Sclerae and conjunctivae are clear. Scalp is free of scale and inflammation. Neck, chest, and back are clear. [id number] C: 11/06/03 12:41 DOCUMENT: [id number] documented in this encounter Plan of Treatment Not on filedocumented as of this encounter Visit Diagnoses Not on filedocumented in this encounter
--- OUTSIDE RECORDS SUMMARY | 2022-06-04 15:12 | XMS_ITS ---
[...] [facility]care QL, DEIRDRE+probe, passage) Urgent [facility] [place]: [address] , [place] Past Encounters 06/24/2021 Exposure to SARS-CoV-2; Cough Reina Mendoza PA-C: [address], [place] [phone], Ph. Social History Tobacco Smoking Status Never Smoker Vaccine List Vaccine Type COVID-19, mRNA, LNP-S, PF, 30 mcg/0.3 mL dose ([employer]) 01/25/2021 02/15/2021 influenza, injectable, quadrivalent, pre servative [...]
--- OUTSIDE RECORDS SUMMARY | 2022-06-04 15:12 | XMS_ITS | Clinical Summary ---
:1965 Author Organization [facility] Address [place] [address] Care Team Providers Name Role Phone Mallory [...] Requisition Karlene Peres MD 03/31/2022 Refill Eulogio Shrape, Refill Request (Gabapentin) from Last 3 Months [...] and wt on same day) for age 1006/21/1985 18+ Hepatitis C screening for age 18-79 1985 Tetanus booster 1987 Colonoscopy through age 75 2012 Lipids for age 45-75 2012 Mammogram for age 45-75 2012 Zoster (shingles) series for age 50+ 2017 (1 of 2) COVID-19 vaccine series (3 - Booster 04/12/2021 02/15/2021, 01/25/2021 for Pfizer series) Influenza for age 50-64 04/30/2022 Pap test for age 21-65 05/25/2025 05/25/2022, 06/24/2017, 06/24/2017 Medical Devices Implanted Type Area Adjunct Writing Instructor Device Shelf Model / Identifier Expiration Serial / Lot Date 3.0 Mm Carito Screws, Titanium Right: [id number] / Implanted: Qty: 1 on 08/11/2021 by Rocael Gutiérrez DPM at [facility] / [id number] [place] Self Starting Variable Screw 4.0x12mm N/A: Spine [id number] / Implanted: Qty: 6 on 01/13/2022 by Marlene Benjamin MD at [facility] / Description: [place] SELF STARTING VA RIABLE SCREW 4.0X12MM Procedures Procedure Name Priority Date/Time Associated Diagnosis Comme nts LAB TRACKING EVENT Routine 05/25/2022 3:50 PM CDT HPV THIN PREP Routine 05/25/2022 1:50 PM Results for this CDT procedure are i n the results section. from Last 3 Months Results LAB TRACKING EVENT (05/25/2022 3:50 PM CDT) Specimen Anatomical Collection Method Collection Time Receive d Time (Source) Location / / Volume Laterality Other (Other) Client Collect / 05/25/2022 3:50 PM 05/01 7:28 Unknown CDT PM CDT Karlene Peres MD LAB BILL ONLY Performing Organization Address City/State/ZIP Code Phon e Number [facility] [address] [place] [address] LABORATORY-CENTRAL 2000 LABORATORY HPV HIGH RISK (05/25/2022 1:50 PM CDT) Analysis Performed At Patho logist Time Signature TYPE 16 Negative Negative 05/30/2022 [facility] [employer] 12:33 PM CDT LABORATORY-[facility] LABORATORY TYPE 18 Negative Negative 05/30/2022 [facility] [employer] 12:33 PM CDT LABORATORY-[facility] LABORATORY OTHER HIGH Negative Negative 05/30/2022 [facility] [employer] RISK TYPES 12:33 PM CDT LABORATORY-[facility] LABORATORY Specimen Anatomical Collection Method Collection Time Receive d Time (Source) Location / / Volume Laterality Other 05/25/2022 1:50 PM 3:27 (Cervical/Vagina CDT PM CDT l) Narrative [facility] LABORATORY-CENTRAL LABORAT ORY - 05/30/2022 12:33 PM CDT HPV types 16, 18, 31, 33, 35, 39, 45, 51, 52, 56, 58, 59, 66 and 68 DNA were undetectable or below the pre-set threshold. Methodology: Sigifredo Pamela 4800 HPV Test Karlene Peres MD MICROBIOLOGY Performing Organization Address City/[facility]/ZIP Code Phon e Number [facility] [address] [place] [address] LABORATORY-CENTRAL 1999 LABORATORY from Last 3 Months Insurance Payer Benefit Plan / Subscriber ID Effective Dates Phone Addre ss Type Group [employer] [place] [facility] [id number] 2021-Present [address] [place] [address] Advance Directives Latest Code Status on File Code Status Date Activated Date Inactivated Comments Full Code 01/13/2022 12:15 PM 01/15/2022 6:58 PM Code Status Discussion: Unable to Assess Preferences, Provid er to review later Full Code 08/11/2021 6:39 AM 08/11/2021 1:59 PM Code Status Discussion: Unable to Assess Preferences, Provid er to review later Care Teams Summer Clerk Relationship Specialty Start Date End Date Mallory Ferguson MD PCP - General 09/02/20 [address], [place] [address]
--- OUTSIDE RECORDS SUMMARY | 2022-06-04 15:12 | XMS_ITS | Encounter Summary ---
:1965 Author Organization [facility] Address [address] [address] Care Team Providers Name Role Phone Unavailable [...]
--- OUTSIDE RECORDS SUMMARY | 2022-06-04 15:12 | XMS_ITS | Encounter Summary ---
:1965 Author Organization [facility] Address [address] [place] [address] Care Team Providers Name Role Phone Unavailable Primary Care Provider Unavailable Encounter Details Date Type Department Care Team Description 11/06/2003 PN Conversion Only [place] [address] [place] [address] Social History Tobacco Use Types Packs/Day Years [...]
--- OUTSIDE RECORDS SUMMARY | 2022-06-04 15:12 | XMS_ITS | Encounter Summary ---
:1965 Author Organization [facility] Address [address], [place] [address] Care Team Providers Name Role Phone Denise Castillo MD Primary Care Provider Reason for Visit Reason Comments CONSULT Encounter Details Date Type Department Care Team Description 01/13/2019 Initial Consult Kayla Sargent, Neck pain ( Primary Dx); Rheumatology MD Faheem Other spondylosis with radiculopathy, ce rvical region; [address] PF [facility] [place] Cervical radi culopathy at C6; [place] Cervical radiculopathy at C7; [place], [place] Back tisha n, unspecified back location, unspecified back pain laterality, unspecified chronicity; [id number] Family history of rheumatoid arthritis; [phone] Carpal tunnel s yndrome of right wrist [...] cervical spines 06/2017 faxed to me at [phone], Attn: Dr. Gonzalez Have nerve conduction study at [facility] faxed to me. documented in this [...] been following her [facility] and back [facility]with [facility]. 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 Originally came from [place]. She currently lives in [place], [place]. She neither smokes nor drinks. with [...] extremities. Laboratory exams: No laboratory evaluation within [facility] system since 2004. Outside records: One 11/15/2018, [...] suggest that the patient go back to [facility] to consider an evaluation with [...] leave these to her provider at the [facility]. I told her that I will review the requested outside records of MRI cervical spines and nerve conduction study and will let her know about my further recommendation as above. Total time 60 minutes, 40 minutes counseling. CC: Denise Castillo M.D. [address] [place] [id number] Addendum: Additional outside records: On 04/04/2015, x-ray [...] syndrome documented in this encounter Care Teams Revenue Enforcement Agent Relationship Specialty Start Date End Date Denise Castillo MD PCP - General Family Practice 12/14/[address] [place] [address] documented as of this encounter
[2022-06-04 22:32] LABS: C Reactive Protein* < 0.5 mg/dL (0.5-1.0)
[2022-06-06 17:42] LABS: Rheumatoid Factor <10 IU/mL (0-14)
[2022-06-07 02:38] LABS: Anti-Nuclear Ab(ANA)IgG ELISA None Detected (None Detected); SSA-60 (Ro60) (ENA) IgG 0 AU/mL (0-40); SSA52 (Ro52) (ENA) IgG 0 AU/mL (0-40)
== END 2022-06-04 15:05 | disposition home or self-care (01) ==
PROVIDERS: PCP Emergency Medicine; Visit Provider Emergency Medicine
DX: H04.129 Dry eye syndrome of unspecified lacrimal gland (principal); M25.50 Pain in unspecified joint
CPT/HCPCS: 86039; 86140; 86200; 86235; 86431

== ENCOUNTER 2022-06-16 14:30 | Outpatient (RCR) | payer MEDICAID, SELFPAY | END 2022-08-03 10:58 | disposition home or self-care (01) | PROVIDERS: PCP Physician Assistant Surgical; Visit Provider Physician Assistant Surgical | DX: Z98.1 Arthrodesis status (principal); Z51.89 Encounter for other specified aftercare | CPT/HCPCS: 97110; 97140; 97161 ==

== ENCOUNTER 2022-12-03 11:32 | Outpatient (CLI) | payer MEDICAID, SELFPAY | END 2022-12-03 11:33 | disposition home or self-care (01) | PROVIDERS: PCP Emergency Medicine; Visit Provider Physician Assistant Medical | DX: Z01.818 Encounter for other preprocedural examination (principal); E78.5 Hyperlipidemia, unspecified; E78.1 Pure hyperglyceridemia; E55.9 Vitamin D deficiency, unspecified | CPT/HCPCS: 82784; 84443; 86140; 86364 ==

== ENCOUNTER 2022-12-24 10:37 | Outpatient (CLI) | payer MEDICAID, SELFPAY | END 2022-12-24 10:38 | disposition home or self-care (01) | LOC: OP CLINIC 10:39 | PROVIDERS: PCP Emergency Medicine; Visit Provider Surgery | DX: R19.7 Diarrhea, unspecified (principal); K64.8 Other hemorrhoids; K63.5 Polyp of colon; K64.4 Residual hemorrhoidal skin tags; K21.9 Gastro-esophageal reflux disease without esophagitis | CPT/HCPCS: 43239; 45380; 45385; 88305; 88342; 99153; J1200; J2250; J3010 ==

== ENCOUNTER 2022-12-29 08:00 | Outpatient (RCR) | payer MEDICAID, SELFPAY | END 2023-04-27 15:55 | disposition home or self-care (01) | PROVIDERS: PCP Emergency Medicine; Visit Provider Specialist | DX: M51.26 Other intervertebral disc displacement, lumbar region (principal); R53.1 Weakness; R52 Pain, unspecified; Z51.89 Encounter for other specified aftercare | CPT/HCPCS: 97110; 97116; 97140; 97162; 97530; 97535 ==

== ENCOUNTER 2023-02-11 07:54 | Outpatient (CLI) | payer MEDICAID, SELFPAY ==
--- NOTE | 2023-02-11 08:15 | FL_ITS ---
Patient: DARIEL GUEVARA Facility:?[facility] Patient ID:?[id number] Site Patient ID:?[id number]. Site :?[id number] Study:?XRay-Abdomen ESOPHOGRAM TO READ-02/11/2023 9:01:31 AM Ordering Physician:?SURINDER CHACON Final Report: Technique: Double-contrast esophagram performed after the uneventful administration of effervescent crystals and thick barium followed by thin barium. Fluoroscopy time 52 seconds. Indication: Dysphagia Comparison: None. Findings: Esophagus: Normal morphology and motility. No stricture or mass. Gastroesophageal reflux: None. Impression: Normal double-contrast esophagram. Dictated by Bryce Yao MD @ 02/11/2023 9:42:04 AM Signed by:?Bryce Yao MD @02/11/2023 9:42:04 AM (Electronic Signature)
== END 2023-02-11 07:55 | disposition home or self-care (01) ==
LOC: RAD 07:55
PROVIDERS: PCP Physician Assistant Medical; Visit Provider Physician Assistant Medical
DX: R13.10 Dysphagia, unspecified (principal)
CPT/HCPCS: 74221

== ENCOUNTER 2023-08-12 13:45 | Outpatient (RCR) | payer MEDICAID, OTHER, SELFPAY | END 2023-11-16 15:00 | disposition home or self-care (01) | PROVIDERS: PCP Physician Assistant Medical; Visit Provider Specialist | DX: Z98.1 Arthrodesis status (principal); Z98.890 Other specified postprocedural states; M25.511 Pain in right shoulder; M25.641 Stiffness of right hand, not elsewhere classified; M54.2 Cervicalgia; Z51.89 Encounter for other specified aftercare | CPT/HCPCS: 97032; 97110; 97116; 97140; 97163; 97164; 97530 ==

== ENCOUNTER 2024-01-04 09:42 | Outpatient (CLI) | payer OTHER, MEDICAID, SELFPAY ==
--- OUTSIDE RECORDS SUMMARY | 2024-01-04 09:45 | XMS_ITS | Continuity of Care Document ---
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 Chronic pain - Active gabapentin 600 mg tablet Take 1 Tablet (600 mg) by mouth three times daily. - Active gabapentin 300 mg capsule TAKE 1 CAPSULE BY MOUTH THREE TIMES DAILY - Active methocarbamol 500 mg tablet Take 1-2 Tablets (500-1,000 mg) by mouth every 6 hours if needed for Muscle Spasm. - Active betamethasone acetate and sodium phos 6 mg/mL suspension for injection - Active Ultra-Light Rollator misc Walker with front wheels for home use for 3 months. - Active Senna-S 8.6 mg-50 mg tablet Take 1-4 Tablets by mouth 2 times daily if needed for Constipation. - Active acetaminophen 500 mg tablet Take 2 Tablets (1,000 mg) by mouth every 6 hours. Max acetaminophen dose: 4000mg in 24 hrs. - Active omeprazole 20 mg tablet,delayed release Take 20 mg by mouth two times daily. - Active celecoxib 200 mg capsule TAKE 1 CAPSULE BY MOUTH TWICE DAILY NEEDED FOR PAIN - Active valacyclovir 1 gram tablet TAKE TWO TABLETS BY MOUTH AT ONSET AND TWO TABLETS 12 HOURS LATER. TAKE THE FIRST TWO TABLETS AT THE ONSET OF PAIN AND TINGLING IN THE LIP - Active fexofenadine 180 mg tablet Take 180 mg by mouth once daily with a meal. Do not crush or chew. - Active Fish Oil 120 mg-180 mg capsule Take 2 g by mouth once daily. - Active Medrol (Darvin) 4 mg tablets in a dose pack take by Oral route as directed on pack Not Available - No Longer Active Procedures Procedure Date OFFICE/OUTPATIENT VISIT, NEW Drug test def 8-14 classes Drug Urine Toxology With Chromatography Results Test Name Date and Time Measure Units Reference Range Abnormal Flag Status Comments Panel Description: URINE DRUG SCREEN Preliminar y Image UDT 1 AMPHETAMINE 10:21:00 -100 (Negativ e) ng/mL 0 Preliminary Performed by:[facility] (1) BARBITURATES 10:21:00 -96 (Negativ e) ng/mL 0 Preliminary Performed by:[facility] (1) COCAINE 10:21:00 -101 (Negativ e) ng/mL 0 Preliminary Performed by:[facility] (1) METHADONE 10:21:00 -101 (Negativ e) ng/mL 0 Preliminary Performed by:[facility] (1) OPIATES 10:21:00 -71 (Negativ e) ng/mL 0 Preliminary Performed by:[facility] (1) BENZODIAZEPINES 10:21:00 -108 (Negativ e) ng/mL 0 Preliminary Performed by:[facility] (1) PHENCYCLIDINE - PCP 10:21:00 -113.00 (Negativ e) ng/mL 0.00 Preliminary Performed by:[facility] (1) CANNABINOIDS - THC - MARIJUANA 10:21:00 -99 (Negativ e) ng/mL 0 Preliminary Performed by:[facility] (1) ECSTASY - MDMA 10:21:00 -76 (Negativ e) ng/mL 0 Preliminary Performed by:[facility] (1) OXYCODONE 10:21:00 0 (Positiv e) ng/mL 0 A Preliminary Performed by:[facility] (1) ETHYL ALCOHOL 10:21:00 0 (CONSIST ENT) 100 Preliminary Performed by:[facility] (1) URINE SPECIFIC GRAVITY 10:21:00 1.018 (Accepta ble) 1.003 - 1.035 Preliminary Performed by:[facility] (1) URINE PH 10:21:00 7.5 (Accepta ble) 4.4 - 9.0 Preliminary Performed by:[facility] (1) URINE CREATININE 10:21:00 89 (Accepta ble) mg/dL 20 - 400 Preliminary Performed by:[facility] (1) Panel Description: URINE DRUG SCREEN Final AMPHETAMINE 11:05:00 -100 (Negativ e) ng/mL 0 Final Performed by:[facility] (1) BARBITURATES 11:05:00 -96 (Negativ e) ng/mL 0 Final Performed by:[facility] (1) COCAINE 11:05:00 -101 (Negativ e) ng/mL 0 Final Performed by:[facility] (1) METHADONE 11:05:00 -101 (Negativ e) ng/mL 0 Final Performed by:[facility] (1) OPIATES 11:05:00 -71 (Negativ e) ng/mL 0 Final Performed by:[facility] (1) BENZODIAZEPINES 11:05:00 -108 (Negativ e) ng/mL 0 Final Performed by:[facility] (1) PHENCYCLIDINE - PCP 11:05:00 -113.00 (Negativ e) ng/mL 0.00 Final Performed by:[facility] (1) CANNABINOIDS - THC - MARIJUANA 11:05:00 -99 (Negativ e) ng/mL 0 Final Performed by:[facility] (1) ECSTASY - MDMA 11:05:00 -76 (Negativ e) ng/mL 0 Final Performed by:[facility] (1) OXYCODONE 11:05:00 0 (Positiv e) ng/mL 0 A Final Performed by:[facility] (1) ETHYL ALCOHOL 11:05:00 0 (CONSIST ENT) 100 Final Performed by:[facility] (1) URINE SPECIFIC GRAVITY 11:05:00 1.018 (Accepta ble) 1.003 - 1.035 Final Performed by:[facility] (1) URINE PH 11:05:00 7.5 (Accepta ble) 4.4 - 9.0 Final Performed by:[facility] (1) URINE CREATININE 11:05:00 89 (Accepta ble) mg/dL 20 - 400 Final Performed by:[facility] (1) Panel Description: Full Confirmation Panel Krysta l Image UDT 2 Alprazolam 11:05:00 < 20 (CONSIST ENT) ng/mL 20.0 Final Performed by:[facility] (1) 7-Fella-Sovuagqfro 11:05:00 < 40 (CONSIST ENT) ng/mL 40.0 Final Performed by:[facility] (1) Nordiazepam 11:05:00 < 20 (CONSIST ENT) ng/mL 20.0 Final Performed by:[facility] (1) Temazepam 11:05:00 < 20 (CONSIST ENT) ng/mL 20.0 Final Performed by:[facility] (1) Lorazepam 11:05:00 < 20 (CONSIST ENT) ng/ml 20.0 Final Performed by:[facility] (1) Amphetamine 11:05:00 < 50 (CONSIST ENT) ng/mL 50.0 Final Performed by:[facility] (1) Methamphetamine 11:05:00 < 50 (CONSIST ENT) ng/mL 50.0 Final Performed by:[facility] (1) Methylphenidate 11:05:00 < 40 (CONSIST ENT) ng/mL 40.0 Final Performed by:[facility] (1) MDMA 11:05:00 < 50 (CONSIST ENT) ng/mL 50.0 Final Performed by:[facility] (1) Buprenorphine 11:05:00 < 10 (CONSIST ENT) ng/mL 10.0 Final Performed by:[facility] (1) Norbuprenorphine 11:05:00 < 40 (CONSIST ENT) ng/mL 40.0 Final Performed by:[facility] (1) Naloxone 11:05:00 < 20 (CONSIST ENT) ng/mL 20.0 Final Performed by:[facility] (1) Propoxyphene 11:05:00 < 20 (CONSIST ENT) ng/mL 20.0 Final Performed by:[facility] (1) EDDP 11:05:00 < 20 (CONSIST ENT) ng/mL 20.0 Final Performed by:[facility] (1) Carisoprodol 11:05:00 < 50 (CONSIST ENT) ng/mL 50.0 Final Performed by:[facility] (1) Meprobamate 11:05:00 < 50 (CONSIST ENT) ng/mL 50.0 Final Performed by:[facility] (1) Zolpidem 11:05:00 < 20 (CONSIST ENT) ng/mL 20.0 Final Performed by:[facility] (1) Codeine 11:05:00 < 50 (CONSIST ENT) ng/mL 50.0 Final Performed by:[facility] (1) Morphine 11:05:00 < 20 (CONSIST ENT) ng/mL 20.0 Final Performed by:[facility] (1) Hydrocodone 11:05:00 < 20 (CONSIST ENT) ng/mL 20.0 Final Performed by:[facility] (1) Hydromorphone 11:05:00 < 20 (CONSIST ENT) ng/mL 20.0 Final Performed by:[facility] (1) Oxycodone 11:05:00 102.8 (CONSIST ENT) ng/mL 50.0 Final Performed by:[facility] (1) Oxymorphone 11:05:00 608.3 (CONSIST ENT) ng/mL 20.0 Final Performed by:[facility] (1) Thebaine 11:05:00 < 10 (CONSIST ENT) ng/mL 10.0 Final Performed by:[facility] (1) Norfentanyl 11:05:00 < 20 (CONSIST ENT) ng/mL 20.0 Final Performed by:[facility] (1) 6-Acetyl Morphine 11:05:00 < 20 (CONSIST ENT) ng/mL 20.0 Final Performed by:[facility] () Phencyclidine 11:05:00 < 20 (CONSIST ENT) ng/mL 20.0 Final Performed by:[facility] () Ketamine 11:05:00 < 40 (CONSIST ENT) ng/mL 40.0 Final Performed by:[facility] (1) Benzoylecgonine(Co c Met) 11:05:00 < 10 (CONSIST ENT) ng/ml 20.0 Final Performed by:[facility] (1) Nortriptyline 11:05:00 < 50 (CONSIST ENT) ng/mL 50.0 Final Performed by:[facility] (1) Amtriptyline 11:05:00 < 50 (CONSIST ENT) ng/mL 50.0 Final Performed by:[facility] (1) Fentanyl 11:05:00 < 10 (CONSIST ENT) ng/mL 10.0 Final Performed by:[facility] (1) Norfentanyl 11:05:00 < 20 (CONSIST ENT) ng/mL 20.0 Final Performed by:[facility] (1) LSD 11:05:00 < 10 (CONSIST ENT) ng/ml 10.0 Final Performed by:[facility] (1) O Desmethyl Cis Tramadol 11:05:00 < 50 (CONSIST ENT) ng/ml 50.0 Final Performed by:[facility] (1) Zolpidem 11:05:00 < 20 (CONSIST ENT) ng/mL 20.0 Final Performed by:[facility] (1) Tapentadol 11:05:00 < 40 (CONSIST ENT) ng/mL 40.0 Final Performed by:[facility] (1) Pregabalin 11:05:00 < 50 (CONSIST ENT) ng/mL 50.0 Final Performed by:[facility] (1) Advance Directives Directive Yes / No Effective Date File Name No Information Encounters Encounter Description Practice Location Reason(s) For Visit Diagnoses Date Provider Providers Copied on Encounter OFFICE/OUTPA TIENT VISIT, NEW [facility], [address], [place], [id number] , [place] tel:[phone] [facility] low back pain (chief complaint) Chronic pain syndromePostlami nectomy syndrome, not elsewhere classifiedLong term (current) use of opiate analgesicSpondyl olisthesis, lumbar regionCervicalgi aEncounter for therapeutic drug level monitoring [address], [place], [place], [id number], [place]. tel:[phone] Referring Provider: Eulogio Sharpe [facility] [address] [place], [address]. tel:[phone] [facility], [address], [place], [id number] , [place] tel:[phone] [facility] [place] No Information Esther Sanders. [facility], [place], [place], [id number], [place]. tel:[phone] Family History Family Member Type Diagnosis Age At Onset No Information Payers Payer name Insurance type Covered libertarian ID Authoreder richardson(s) [employer] [id number] Social History Type Description Quantity Date Captured Comments Alcohol Use Details No Caffeine Use Details Unknown Tobacco Use Status No Information Smoking Status Unknown if ever smoked Non-Smoking Tobacco Use Details : No Details Available : No Details Available Sex Female Vital Signs Date / Time: Height Weight BMI Pulse Rate Blood Pressure Temperature Respiratory Rate Body Surface Area Head Circumference Head Circ. Percentile Wt./[place]las. Percentile BMI percentile Pulse Ox Inhaled Ox 2:45 PM 58.00 in 53.524 kg (118.00 lbs) 24.6 6 kg/m eter (2) Chief Complaint And Reason For Visit From encounter dated 10/22/2023 15:00'. low back pain (chief complaint). Description: Severity level is 7. Duration: chronic. It occurs persistently. Location of pain is lower back, gluteal area, legs and knees. The client describes the pain as an ache, burning, numbness, sharp and heaviness. Symptoms are aggravated by bending, lifting, standing, twisting, walking, movement, stairs and housework. Symptoms are relieved by heat, ice, lying down, massage, pain meds/drugs, physical therapy, stretching, rest, sitting and walking. 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 Due on 024 due Goal ALT (SGPT). Due on 24 due Goal Order Annual PT. Due on due Goal OARS. Due on due Goal UDT. Due on due Goal Creatinine. Due on due Goal AST (SGOT). Due on due Goal Zoster vaccine (1st). Due on due Goal Update Social History. Due o n due Goal HPV. Due on due Goal Medication Reconciliation. D ue on due Goal CT-Colonography. Due on due Goal Hepatitis C screening. Due o n due Goal Review Allergy List. Due on due Goal PHQ-9. Due on du e Goal FIT-DNA. Due on due Goal Unhealthy drug use screening . Due on due Goal Height. Due on d ue Goal Lipid panel. Due on due Goal Weight. Due on d ue Goal FIT. Due on due Goal Tobacco Use. Due on due History Of Present Illness Encounter Date Complaint History Of Prese nt Illness low back pain Severity level i s 7. Duration: chronic. It occurs persistently. Location of pain is lower back, gluteal area, legs and knees. The client describes the pain as an ache, burning, numbness, sharp and heaviness. Symptoms are aggravated by bending, lifting, standing, twisting, walking, movement, stairs and housework. Symptoms are relieved by heat, ice, lying down, massage, pain meds/drugs, physical therapy, stretching, rest, sitting and walking. Comments: This i s my first evaluation of the patient. Outside records from [facility] are available for review. She presents with her , who participates in discussion of care.Melina is a 58 y/o female here for initial consult for low back and BL leg pain, referred by Dr. Eulogio Sharpe through [facility]. Pain gradually started in 2021, but has worsened since L5-S1 fusion in 03/10/23. She describes pain as aching, heaviness, burning, sharp, and numbness and rates the pain severity 7/10.Reports an L5-S1 fusion on 03/10/[address] Marlene Cabrales through [facility]. Also has hx of C4-C6 fusion. States low back pain radiates down her BL buttocks, legs, and knees. She followed up with Dr. Cabrales in Aug 2023 and was told her L4/L5 was worsening and may need further surgery in the future. Has also been following with Dr. Eulogio Sharpe and was recommended possible injections- STEFAN vs RFA.She has tried an L5-S1 IESI and knee injections, without lasting relief. Last completed 14 sessions of PT in Jun 2023 and continues a HEP. She has previously tried methocarbamol and prednisone, unsure of relief.The patient is currently managed on oxycodone 5mg 6 tabs/day, gabapentin 600mg TID, celebrex 200mg BID, and tylenol. She last picked up oxycodone 5mg #120 on 10/19/23, prescribed by Dr. Eulogio Sharpe.Melina is interested in all treatment options through [facility]. No other concerns today. Functional Status Date Functional Assessmen t No Information Instructions Date Instruction Additional Infor diego No Information Assessments Type Assessment Date assessment Chronic pain syndrome assessment Postlaminectomy syndrome, not el sewhere classified assessment prison (current) use of opiat e analgesic assessment Spondylolisthesis, lumbar region assessment Cervicalgia impression Ongoing neck pain, o f secondary concern today. S/p C4-C6 fusion.Cervical XR 01/04/23CONCLUSION:1. C4-C6 interval healing with solid appearing ACDF and no instrumentation complications.2. Mild degenerative disc disease at C3-4 is unchanged assessment Encounter for therapeutic drug l evel monitoring impression The patient is curre ntly managed on oxycodone 5mg 6 tabs/day, gabapentin 600mg TID, celebrex 200mg BID, and tylenol. She last picked up oxycodone 5mg #120 on 10/19/23, prescribed by Dr. 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 [place] [employer] criminal backgrounds check completed with no outstanding results or concerning convictions impression Reports an L5-S1 fus ion on 03/10/[address] Marlene Cabrales through [facility]. Also has hx of C4-C6 fusion. States low back pain radiates down her BL buttocks, legs, and knees. Currently being considered for addition surgery vs procedural care.She has tried an L5-S1 IESI and knee injections, without lasting relief. Last completed 14 sessions of PT in Jun 2023 and continues a HEP impression Melina is a 58 y/o fem [place] here for initial consult for low back and BL leg pain, referred by Dr. Eulogio Sharpe through [facility]. Pain gradually started in 2021, but has worsened since L5-S1 fusion in 03/10/23. She describes pain as aching, heaviness, burning, sharp, and numbness and rates the pain severity 03/08 impression Reports 3 mm spondyl olisthesis at L4-L5.Lumbar MRI 07/24/23CONCLUSION:1. Interbody and instrumented posterior spinal fusions at L5-S1 indeterminate on MRI with no postop fracture or infection.2. No iatrogenic stenosis or neural impingement.3. Disc and facet degeneration at L4-5 with a 3 mm spondylolisthesis and no stenosis or impingement.4. Comparison with 12/15/2022 shows that surgical changes at L5-S1 are new and spondylolisthesis at L4-5 has increased in the interval Mental Status Date Cognitive Assessment Orientation - Ever[place] ed to time, place, person, situation. Patient Care Teams Name Effective Dates (start - stop) Status Members No Information
--- OUTSIDE RECORDS SUMMARY | 2024-01-04 09:46 | XMS_ITS | Clinical Summary ---
Author Name Unknown Organization [facility] Address [place], [place] [address] Care Team Providers Care Radio Script Writer Name Role Phone Ayaka Cramer PA-C Primary Care Provider Allergies Active Allergy Reactions Criticality Noted Date Comments Amoxicillin Throat Swelling/Closing High 03/09/2023 ##Pharmacist completed allergy assessment. Allergy determined to be low risk. Will likely tolerate cefazolin, as it does not share a side chain with amoxicillin and risk for cross-reactivity is low. Pt received Ancef doses on 08/11/21 and 01/13/22 - No reaction noted at that time. [facility] Medication Sig Dispensed Refills Start Date End Date Status valACYclovir (VALTREX) 1 gram tablet TAKE TWO TABLETS BY MOUTH AT ONSET AND TWO TABLETS 12 HOURS LATER. TAKE THE FIRST TWO TABLETS AT THE ONSET OF PAIN AND TINGLING IN THE LIP 02/26/2020 Active Docosahexanoic Acid-Eicosapent 120-180 mg cap Take 2 g by mouth once daily. Active cholecalciferol (VITAMIN D3) 1,000 unit tablet Take 1,000 units by mouth once daily. Active ascorbic acid, vitamin C, (VITAMIN C) 1,000 mg tablet Take 1,000 mg by mouth 2 times daily. Active TURMERIC ORAL Take 1 Tablet by mouth once daily. Active multivitamin with minerals (MULTI-VITAMIN W/MINERALS ORAL) Take 1 Tablet by mouth once daily. Active celecoxib (CELEBREX) 200 mg capsule TAKE 1 CAPSULE BY MOUTH TWICE DAILY NEEDED FOR PAIN 11/17/2022 Active omeprazole 20 mg tablet Take 20 mg by mouth two times daily. 03/01/2023 Active DOELA-5-CNM-FISH OIL ORAL Take by mouth. Active fexofenadine (Geovanna Allergy) 180 mg tablet Take 180 mg by mouth once daily with a meal. Do not crush or chew. Active acetaminophen (TYLENOL EXTRA STRGTH) 500 mg tabletIndications: Acute postoperative pain Take 2 Tablets (1,000 mg) by mouth every 6 hours. Max acetaminophen dose: 4000mg in 24 hrs. 0 03/11/2023 Active sennosides-docusat e (SENOKOT S) (8.6-50 mg) tabletIndications: Constipation, unspecified constipation type Take 1-4 Tablets by mouth 2 times daily if needed for Constipation. 15 Tablet 03/11/2023 Active WalkerIndications: S/P lumbar fusion Walker with front wheels for home use for 3 months. 1 Each 03/12/2023 Active methocarbamoL (ROBAXIN) 500 mg tabletIndications: Acute postoperative pain Take 1-2 Tablets (500-1,000 mg) by mouth every 6 hours if needed for Muscle Spasm. 60 Tablet 3 07/26/2023 Active gabapentin (NEURONTIN) 600 mg tabletIndications: Lumbar radiculopathy Take 1 Tablet (600 mg) by mouth three times daily. 90 Tablet 5 10/06/2023 Active oxyCODONE (ROXICODONE) 5 mg immediate release tabletIndications: Lumbar radiculopathy Take 1 Tablet (5 mg) by mouth every 4 hours if needed for Pain. Chronic pain 120 Tablet 11/03/2023 Active rosuvastatin (CRESTOR) 10 mg tablet Take 10 mg by mouth once daily. 10/27/2023 Active HYDROcodone-acetam inophen (10-325 mg/tablet)Indicati ons:Lumbar radiculopathy,S/P lumbar fusion,Lumbar facet arthropathy,Lumbar foraminal stenosis Take 1 Tablet by mouth every 4 hours if needed for Pain. Max acetaminophen 4000mg in 24 hours. 120 Tablet 12/27/2023 Active HYDROcodone-acetam inophen (10-325 mg/tablet)Indicati ons:Lumbar radiculopathy,S/P lumbar fusion,Lumbar facet arthropathy,Lumbar foraminal stenosis Take 1 Tablet by mouth every 4 hours if needed for Pain. Max acetaminophen 4000mg in 24 hours. 60 Tablet 11/29/2023 12/08/19 24 Discontinu ed(Reorder (E-cancel not sent)) HYDROcodone-acetam inophen (10-325 mg/tablet)Indicati ons:Lumbar radiculopathy,S/P lumbar fusion,Lumbar facet arthropathy,Lumbar foraminal stenosis Take 1 Tablet by mouth every 4 hours if needed for Pain. Max acetaminophen 4000mg in 24 hours. 120 Tablet 12/08/2023 12/27/19 24 Discontinu ed(Reorder (E-cancel not sent)) Active Problems Problem Noted Date Diagnosed Date Controlled substance agreement signed 09/22/2023 Overview: Controlled substance agreement signed on 09/22/[address] Eulogio Sharpe MD UDS not on file KIDNEY TRIMMER: 12/09/2023 S/P lumbar fusion 03/11/2023 Acute postoperative pain 03/10/2023 Vitamin D insufficiency 01/13/2022 Back pain 05/31/2015 Urinary incontinence 06/29/2011 Overview: (Problem list name updated by automated process. Provider to review and confirm.) Hyperlipidemia LDL goal <160 01/14/2011 Esophageal reflux 06/10/2007 Sciatica 06/10/2007 Encounters Date Type Department Care Team Description 01/03/2024 Travel 12/20/2023 Orders Only [facility] [place] [address] Eulogio Sharpe MD 1 scan: (1-Ord) [facility], RT KNEE, 12/15/2023 12/16/2023 Medical Messaging [facility] Edwar Mandujano [facility] [address] Eulogio Sharpe MD Knee MRI and Dr. Cabrales appointment 12/09/2023 11:30 AM CDT Ancillary Procedure [facility]war Mandujano [facility] [address] 12/09/2023 11:15 AM CDT Ancillary Procedure [facility] [address] [facility] [place] [address] 12/09/2023 Telephone [facility] [address] [place] [address] Eulogio Sharpe MD Results (CT) 12/09/2023 Travel 12/02/2023 Telephone [facility] [address] [place] [address] [place], [facility] Appointment 11/10/2023 1:40 PM CDT Office Visit [facility] [address] [place] [address] Eulogio Sharpe MD Musculoskeletal Problem (Follow up back, knee pain waiting on insurance for knee MRI) 11/10/2023 Telephone [facility] [address] [place] [address] Eulogio Sharpe MD Concerns 11/10/2023 Travel 11/09/2023 Travel 10/18/2023 Medical Messaging [facility] [address] [place] [address] Eulogio Sharpe MD Page 5 from Last 3 Months Family History Medical History Relation Name Comments Rheum arthritis Sister Relation Name Status Comments Sister Social History Tobacco Use Types Packs/Day Years Used Date Smoking Tobacco: Former Smokeless Tobacco: Never Tobacco Cessation:Counseling Given: Yes Comments:25-30 yrs ago quit Alcohol Use Standard Drinks/Week Comments Not Currently 0 (1 standard drink = 0.6 oz pur e alcohol) Social Connections Answer Date Recorded Frequency of Communication with Friends and Fami ly Not on file 08/20/2021 Financial Resource Strain Answer Date R ecorded Difficulty of Paying Living Expenses Not on file 08/20/2021 Difficulty of Paying Living Expenses Not on file 08/20/2021 Sex and Gender Information Value Date Recorded Sex Assigned at Not on file Gender Identity Not on file Sexual Orientation Not on file Obstetrics History Last Filed Vital Signs Vital Sign Reading Time Taken Comments Blood Pressure 134/83 11/10/2023 1:43 PM CDT Pulse 108 11/10/2023 1:43 PM CDT Temperature 36.9 ??C (98.4 ??F) 11/10/2023 1 :43 PM CDT Respiratory Rate 16 03/13/2023 8:46 AM CDT Oxygen Saturation 98% 11/10/2023 1:4 3 PM CDT Inhaled Oxygen Concentration - - Weight 52.9 kg (116 lb 9.6 oz) 07/21/2023 11:04 AM 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 Height 147.3 cm (4' 10) 03/10/2023 7:5 7 AM CDT Body Mass Index 24.37 03/10/2023 7:57 AM CDT Plan of Treatment Upcoming Encounters Date Type Department Care Team (Late st Contact Info) Description 01/04/2024 10:20 AM CDT Office Visit [facility] [address] [place] [phone] Eulogio Sharpe MD [address] [place] [address] Arrived Health Maintenance Due Date Last Done Comments Tdap 1978 Depression screening for age 12+ 1979 HIV for age 15-65 1982 BMI (ht and wt on same day) for age 18+ 1985 Hepatitis C screening for age 18-79 1985 Tetanus booster 1987 Colonoscopy through age 75 2012 Lipids for age 45-75 2012 Mammogram for age 45-75 2012 Zoster (shingles) series for age 50+ (1 of 2) 2017 COVID-19 vaccine series ( season) 2023 02/15/2021, 01/25/2021 Influenza for age 50-64 04/30/2024 Pap test for age 21-65 05/25/2025 , 05/25/2022, 06/24/2017, Additional history exists Pneumococcal series for age 6-64 Aged Out No longer eligible based on patient's age to complete this topic Medical Devices Implanted Type Area Mold Cleaner Device Identifier Shelf Expiration Date Model / Serial / Lot 3.0 Mm Headless Compression Pt Screws Implanted:Qty: 1 on 08/11/2021 by Rocael Daily DPM at [facility] Right: Foot [employer] AR-8630-26 / / [id number] Low Profile Mtp Plate, Contoured, Right, Titanium Implanted:Qty: 1 on 08/11/2021 by Rocael Daily DPM at [facility] Right: Foot [employer] AR-8944CR-P / / [id number] 3.0mm Low Profile Screws, Cortical, Titanium Implanted:Qty: 2 on 08/11/2021 by Rocael Daily DPM at [facility] Right: Foot AR-8933-16 / / [id number] 3.0 Mm Carito Screws, Titanium Implanted:Qty: 2 on 08/11/2021 by Rocael Daily DPM at [facility] Right: Foot AR-8933V-14 / / [id number] 3.0 Mm Carito Screws, Titanium Implanted:Qty: 1 on 08/11/2021 by Rocael Daily DPM at [facility] Right: Foot AR-8933V-16 / / [id number] 6bone Cerv 6mm 4 Deg [place] W/P Implanted:Qty: 1 on 01/13/2022 by Marlene Cabrales MD at [facility] Explanted:at [facility] (Quantity not on file) N/A: Spine Stefani Spine 04/15/2025 [id number] / [id number] / Spiritwood View Self Starting Variable Screw 4.0x12mm Implanted:Qty: 6 on 01/13/2022 by Marlene Cabrales MD at [facility] N/A: Spine [id number] / / Description:OZARK VIEW SELF STARTING VARIABLE SCREW 4.0X12MM [id number] 6bone Cerv 6mm 4 Deg Stefani W/P Implanted:Qty: 1 on 01/13/2022 by Marlene Cabrales MD at [facility] Explanted:at [facility] (Quantity not on file) N/A: Spine Stefani Spine 09/01/2023 [id number] / [id number] / [id number] one Matrix 1cc Carlos Plus Paste Dbm Implanted:Qty: 1 on 01/13/2022 by Marlene Cabrales MD at [facility] Explanted:at [facility] (Quantity not on file) N/A: Spine Medtronic Spine/Ortho 10/01/2023 [id number] / [id number] / Spiritwood View Anterior Cervical Plates Constrained 2 Level 34 Mm Implanted:Qty: 1 on 01/13/2022 by Marlene Cabrales MD at [facility] N/A: Spine [id number] / / Description:OZARK VIEW Anter ior Cervical Plates Constrained 2 Level 34 mm Bone 1-4mm 30cc Medtronic Chips Canclls Freeze Dried - [id number] Implanted:Qty: 1 on 03/10/2023 by Marlene Cabrales MD at [facility] N/A: Spine Medtronic Spine/Ortho 10/27/2026 [id number] / [id number] / Bone Matrix 3cc Carlos Dbf Putty Dbm - [id number] Implanted:Qty: 1 on 03/10/2023 by Marlene Cabrales MD at [facility] N/A: Spine Medtronic Spine/Ortho 01/07/2025 [id number] / [id number] / Spacer Lmbr 9x26mm Capstone Tlif Peek - [id number] Implanted:Qty: 1 on 03/10/2023 by Marlene Cabrales MD at [facility] N/A: Spine Medtronic Spine/Ortho 11/08/2023 [id number] / / [id number] Set Screw Lmbr Ant 5.5mm Solera Break Off - [id number] Implanted:Qty: 4 on 03/10/2023 by Marlene Cabrales MD at [facility] N/A: Spine Medtronic Spine/Ortho [id number] / / Sedrick Lmbr 35x5.5mm Solera 5.5/6 Cvd Titnm - [id number] Implanted:Qty: 1 on 03/10/2023 by Marlene Cabrales MD at [facility] N/A: Spine Medtronic Spine/Ortho [id number] / / Sedrick Lmbr 40x5.5mm Solera 5.5/6 Cvd Titnm - [id number] Implanted:Qty: 1 on 03/10/2023 by Marlene Cabrales MD at [facility] N/A: Spine Medtronic Spine/Ortho [id number] / / Screw Lmbr Post 6.5x40mm Solera 5.5/6 Va Cocr - [id number] Implanted:Qty: 2 on 03/10/2023 by Marlene Cabrales MD at [facility] N/A: Spine Medtronic Spine/Ortho [id number] / / Screw Lmbr Post 6.5x45mm Solera 5.5/6 Va Cocr - [id number] Implanted:Qty: 2 on 03/10/2023 by Marlene Cabrales MD at [facility] N/A: Spine Medtronic Spine/Ortho [id number] / / Procedures Procedure Name Priority Date/Time Associated Diagnosis Comments AMB EPIDURAL STEROID INJECTION Routine 01/04/2024 8:08 AM CDT Lumbar radiculopathy S/P lumbar fusion Lumbar facet arthropathy Lumbar foraminal stenosis MR KNEE RIGHT WO Routine 12/15/2023 12:0 0 AM CDT Chronic pain of right knee Pain of meniscus of right knee CT SPINE LUMBAR WO Routine 12/09/2023 11 :09 AM CDT Lumbar radiculopathy S/P lumbar fusion Lumbar facet arthropathy XR SPINE LUMBAR 2 VIEWS FLEXION EXTENSION Routine 12/09/2023 10:57 AM CDT Lumbar radiculopathy S/P lumbar fusion Lumbar facet arthropathy HPV THIN PREP Routine 05/25/2022 1:50 PM CDT from Last 3 Months or Most Recently Relevant to Health Maintenance Results * MR KNEE RIGHT WO (12/15/2023 12:00 AM CDT) Anatomical Region Laterality Modality KNEE R Magnetic Resonan ce Eulogio Sharpe MD MR * CT SPINE LUMBAR WO (12/09/2023 11:09 AM CDT) Anatomical Region Laterality Modality LUMBAR SPINE, Spine, Spine Compu janice Tomography 12/09/2023 3:32 PM CDT Narrative 12/09/2023 3:32 PM CDT For Patients: ??As a result of the Cures Act, medical imaging exams and procedure reports are released immediately into your electronic medical record. ??You may view this report before your referring provider. ??If you have questions, please contact your health care provider. Indication: Lumbar facet arthropathy Technique: Noncontrast enhanced lumbar spine Please note that all CT scans at this facility use dose modulation, iterative reconstruction, and/or weight-based dosing when appropriate to reduce radiation dose to as low as reasonably achievable. Comparison: X-rays 12/09/2023 and 05/31/2023 Findings: Postop changes of posterior and interbody fusion L5-S1. No hardware loosening. No vertebral body compression fracture or pars defect. No paraspinal mass. Slight left lateral bulging of the L3-4 disc resulting in mild narrowing of the left foramen at this level. Remaining levels are normal. Impression: Mild left foraminal stenosis L3-4. Intact fixation hardware at L5-S1. No other significant findings. Please note that all CT scans at this facility use dose modulation, iterative reconstruction, and/or weight-based dosing when appropriate to reduce radiation dose to as low as reasonably achievable. Dictated by Bryce Yao MD @ 12/09/2023 3:32:38 PM (Electronically Signed) Procedure Note Bryce Yao MD - 12/09/2023 For Patients: As a result of the Cures Act, medical imagingexams and procedure reports are released immediately into your electronicmedical record. You may view this report before your referring provider.If you have questions, please contact your health care provider. Indication: Lumbar facet arthropathy Technique: Noncontrast enhanced lumbar spine Please note that all CT scans at this facility use dose modulation,iterative reconstruction, and/or weight-based dosing when appropriate toreduce radiation dose to as low as reasonably achievable. Comparison: X-rays 12/09/2023 and 05/31/2023 Findings: Postop changes of posterior and interbody fusion L5-S1. No hardwareloosening. No vertebral body compression fracture or pars defect. Noparaspinal mass. Slight left lateral bulging of the L3-4 disc resulting inmild narrowing of the left foramen at this level. Remaining levels arenormal. Impression: Mild left foraminal stenosis L3-4. Intact fixation hardware at L5-S1. Noother significant findings. Please note that all CT scans at this facility use dose modulation,iterative reconstruction, and/or weight-based dosing when appropriate toreduce radiation dose to as low as reasonably achievable. Dictated by Bryce Yao MD @ 12/09/2023 3:32:38 PM (Electronically Signed) Eulogio Sharpe MD CT * XR SPINE LUMBAR 2 VIEWS FLEXION EXTENSION (12/09/2023 10:57 AM CDT) Anatomical Region Laterality Modality Spine, LUMBAR SPINE Computed Rad iography 12/09/2023 3:15 PM CDT Impressions 12/09/2023 3:15 PM CDT Posterior and interbody fusion L5-S1. No fracture. Hardware intact. Anterolisthesis of L3 on L4 with flexion measuring 5.5 millimeters. Dictated by Bryce Yao MD @ 12/09/2023 3:15:20 PM (Electronically Signed) Narrative 12/09/2023 3:15 PM CDT For Patients: ??As a result of the Cures Act, medical imaging exams and procedure reports are released immediately into your electronic medical record. ??You may view this report before your referring provider. ??If you have questions, please contact your health care provider. Indication: Lumbar radiculopathy Technique: Lumbar spine 2 view, lateral flexion/extension Comparison: 05/31/2023 Procedure Note Bryce Yao MD - 12/09/2023 For Patients: As a result of the Cures Act, medical imagingexams and procedure reports are released immediately into your electronicmedical record. You may view this report before your referring provider.If you have questions, please contact your health care provider. Indication: Lumbar radiculopathy Technique: Lumbar spine 2 view, lateral flexion/extension Comparison: 05/31/2023 IMPRESSION: Posterior and interbody fusion L5-S1. No fracture. Hardware intact.Anterolisthesis of L3 on L4 with flexion measuring 5.5 millimeters. Dictated by Bryce Yao MD @ 12/09/2023 3:15:20 PM (Electronically Signed) Eulogio Sharpe MD GENERAL IMAGING * HPV HIGH RISK (05/25/2022 1:50 PM CDT) TYPE 16 Negative Negative 05/30/2022 12:33 PM CDT [facility] TYPE 18 Negative Negative 05/30/2022 12:33 PM CDT [facility] OTHER HIGH RISK TYPES Negative Negative 05/30/2022 12:33 PM CDT [facility] TRA LABORATORY Other (Cervical/Vagina l) 05/25/2022 1:50 PM CDT 05/27/2022 3:27 PM CDT Narrative [facility] - 05/30/2022 12:33 PM CDT HPV types 16, 18, 31, 33, 35, 39, 45, 51, 52, 56, 58, 59, 66 and 68 DNA were undetectable or below the pre-set threshold. Methodology: Sigifredo Pamela 4800 HPV Test Karlene Peres MD MICROBIOLOGY [facility] [address] [place] [address], from Last 3 Months or Most Recently Relevant to Health Maintenance Advance Directives * Full Code (Latest Code Status on File) Date Activated Date Inactivated Comments 03/11/2023 12:32 PM 03/13/2023 3:41 PM Question Answer Comments Code Status Discussion: Unable to Assess Preferences, Provider to review later * Full Code Date Activated Date Inactivated Comments 03/11/2023 12:32 PM 03/11/2023 12:32 PM Question Answer Comments Code Status Discussion: Reviewed Preferences * Full Code Date Activated Date Inactivated Comments 03/10/2023 4:49 PM 03/11/2023 12:32 PM Question Answer Comments Code Status Discussion: Unable to Assess Preferences, Provider to review later * Full Code Date Activated Date Inactivated Comments 01/13/2022 12:15 PM 01/15/2022 6:58 PM Question Answer Comments Code Status Discussion: Unable to Assess Preferences, Provider to review later * Full Code Date Activated Date Inactivated Comments 08/11/2021 6:39 AM 08/11/2021 1:59 PM Question Answer Comments Code Status Discussion: Unable to Assess Preferences, Provider to review later Care Teams Radio Script Writer Relationship Specialty Start Date End Date Ayaka Cramer PA-C [address] [place] [address] PCP - General Emergency Medicine 01/14/23
--- OUTSIDE RECORDS SUMMARY | 2024-01-04 09:46 | XMS_ITS | Continuity of Care Document ---
Author Name Unknown Organization [facility] Address [address] [place] [address] Phone Care Team Providers Care Buccaro Name Role Phone Keron LEMONS, Marlene Unavailable Unavailable Allergies, Adverse Reactions, Alerts Substance Reaction Status Criticality No Known Allergies Active No Inform ation Medications Medication Instructions Dosage Effective Dates (start - stop) Status Comments methocarbamol 500 mg tablet take 1-2 Tablet by ORAL route every 6 hours as needed for muscle spasms - Active HYDROCODONE-ACETAMI NOPHEN (unknown strength) Not Available - Active GABAPENTIN (unknown strength) Not Available - Active GABAPENTIN (unknown strength) Not Available - Active ACETAMINOPHEN (unknown strength) Not Available - Active CELEBREX (unknown strength) Not Available - Active oxycodone 5 mg tablet take 1 - 2 Tablet by ORAL route every 6-8 hours as needed for pain - No Longer Active oxycodone 5 mg tablet take 1 - 2 Tablet by ORAL route every 4 - 6 hours as needed for acute postop pain (G89.18). Begin to wean down as pain level decreases. - No Longer Active G89.18 Procedures Procedure Date Office/Outpatient Visit,Maurice Mckay 2023 OFFICE/OUTPATIENT VISIT EST Phone Postop Followup Visit Postop Followup Visit X-Ray Exam Lower Spine 2-3 Views 2022 TLIF - Includes PSF at the same level - PA MICHAEL FACETC/FRMT ARTHRD LUM 1 Posterior Instrumentation, Non-segmental - PA PEEK/ Cage/ Implant, For Interbody Fusio n - PA Autograft, From Same Incision Pa Assist TLIF - Includes PSF at the same level Ju MICHAEL FACETC/FRMT ARTHRD LUM 1 Posterior Instrumentation, Non-segmental PEEK/ Cage/ Implant, For Interbody Fusio n Allograft, Morcelized, and/or BMP Autograft, From Same Incision OFFICE/OUTPATIENT VISIT EST Phone Office/Outpatient Visit,Est, Mod 2022 X-Ray Exam Lwr Spine, Min 4 Views Physician Telephone Evaluation 11-20 Min OFFICE/OUTPATIENT VISIT EST Phone Postop Followup Visit X-Ray Exam Of Neck Spine2-3 Views Postop Followup Visit X-Ray Exam Of Neck Spine2-3 Views ACDF - Anterior Cervical Discectomy and Fusion - PA ACDF - Additonal Level - PA Anterior Instrumentation, 2-3 Segments - PA ACDF - Anterior Cervical Discectomy and Fusion ACDF - Additonal Level(s) Anterior Instrumentation, 2-3 Segments M Allograft, Structural Office/Outpatient Visit,Est, Mod 2021 Office/Outpatient Visit,Est, Mod 2016 Office/Outpatient Visit,Est, Mod 2016 Office/Outpatient Visit,New, Mod 2016 Advance Directives Directive Yes / No Effective Date File Name No Information Encounters Encounter Description Practice Location Reason(s) For Visit Diagnoses Date Provider Providers Copied on Encounter Office/Outpat ient Visit,Est, Low [facility], [address], [facility], [id number], [place] tel:[phone] [facility] Arthrodesis status 4 Mehbod Amir. [facility] [place], [address] [place] [address] [address], [place], [place], [id number] , [place]. tel:[phone] Referring Provider: Denise Collins [facility] [address] [place], [address]. tel:[phone] OFFICE/OUTPAT IENT VISIT EST Phone [facility], [address], [facility], [id number], [place] tel:[phone] [facility] [facility] No Information 4 Mehbod Amir. [facility], [address] [place] [address] [address], [place], [place], [id number] , [place]. tel:[phone] Referring Provider: [facility] [address] [place], [address]. tel:[phone] [facility], [address], [facility] [id number], [place] tel:[phone] [facility] Arthrodesis status 3 Mehbod Amir. [facility], [address] [place] [address], [place], [place], [id number] , [place]. tel:[phone] Referring Provider: [facility] [address] [place], [address]. tel:[phone] [facility], [address], [facility] [place] [id number], [place] tel:[phone] [facility] Encounter for other specified surgical aftercare 3 Ihsan Pathak. [address] [place] [address], [id number] , [place]. tel:[phone] Referring Provider: Denise Collins [facility] [address] [place], [address]. tel:[phone] [facility], [address], [place], [id number], [place] tel:[phone] [facility] No Information 3 Mehbod Amir. [facility], [address], [place], [id number] , [place]. [phone] [facility], [address], [place], [id number], [place] tel:[phone] [facility] No Information 3 Mehbod Amir. [facility] [place], [address], [place], [id number] , [place]. [phone] [facility], [address], [place], [id number], [place] tel:[phone] [facility] No Information 3 Eckroth Lawson. [address] [place] [address], [place], [id number] , [place]. [phone] Referring Provider: [facility] [address] [place], [address]. tel:[phone] [facility], [address], [place], [id number], [place] tel:[phone] [facility] No Information 3 Mehbod Amir. [facility] [place], [address], [place], [id number] , [place]. tel:[phone] Referring Provider: Denise Collins [facility] [address] [place], [address]. tel:[phone] OFFICE/OUTPAT IENT VISIT EST Phone [facility], [address], [place], [id number], [place] tel:[phone] [facility] No Information 3 Eckroth Lawson. [address] [place] [address], [place], [id number] , [place]. tel:[phone] Referring Provider: Denise Scheid [facility] [address] [place], [address]. tel:[phone] Office/Outpat ient Visit,Est, Mod [facility], [address], [place], [id number], [place] tel:[phone] [facility] No Information 3 Mehbod Florindar. [facility], [address], [place], [place], [id number] , [place]. tel:[phone] Referring Provider: [facility] [address] [place], [address]. tel:[phone] Physician Telephone Evaluation 11-20 Min [facility], [address], [place], [id number], [place] tel:[phone] [facility] No Information 2 Ihsan Pathak. [address] [place] [address], [id number] , [place]. tel:[phone] Referring Provider: [facility] [address] [place], [address]. tel:[phone] OFFICE/OUTPAT IENT VISIT EST Phone [facility], [address], [place], [id number], [place] tel:[phone] [facility] No Information 2 Ihsan Pathak. [address] [place] [address], [place], [place], [id number] , [place]. tel:[phone] Referring Provider: [facility] [address] [place], [address]. tel:[phone] [facility], [address], [place], [id number], [place] tel:[phone] [facility] Encounter for other specified surgical aftercare 2 Ihsan Pathak. [address] [place] [address], [id number] , [place]. tel:[phone] Referring Provider: Denise Anna [facility] [address] [place], [address]. tel:[phone] [facility], [address], [facility], [id number], [place] tel:[phone] [facility] Encounter for other specified surgical aftercare 2 Mehbod Amir. [facility] [place], [address] [place] [address], [place], [place], [id number] , [place]. tel:[phone] Referring Provider: [facility] [address] [place], [address]. tel:[phone] [facility], [address], [facility], [id number], [place] tel:[phone] [facility] No Information 2 Ihsan Pathak. [address] [place] [address] [address], [place], [place], [id number] , [place]. tel:[phone] Referring Provider: Denise [facility] [address] [place], [address]. tel:[phone] [facility], [address], [facility], [id number], [place] tel:[phone] [facility] No Information 2 Mehbod Amir. [facility], [address] [place] [address], [place], [place], [id number] , [place]. tel:[phone] Referring Provider: Denise [facility] [address] [place], [address]. tel:[phone] Office/Outpat ient Visit,Est, Mod [facility], [address], [facility], [id number], [place] tel:[phone] [facility] No Information 2 Mehbod Amir. [facility], [address] [place] [address] [address], [place], [place], [id number] , [place]. tel:[phone] Referring Provider: Eulogio Pyle, [address], [place], [address]. tel:[phone] Office/Outpat ient Visit,Est, Mod [facility], [address], [facility], [id number], [place] tel:[phone] [facility] Skyler Cyr. [facility] [place], [address], [place], [place], [id number] , [place]. tel:[phone] Referring Provider: [facility] [address] [place], [address]. tel:[phone] Office/Outpat ient Visit,Est, Mod [facility], [address], [place], [place], [id number], [place] tel:[phone] [facility] No Information Skyler Cyr. [facility], [address], [place], [place], [id number] , [place]. [phone] Referring Provider: [facility] [address] [place], [address]. tel:[phone] [facility], [address], [place], [place], [id number], [place] tel:[phone] [facility] [place] [facility] Skyler Cyr. [facility], [address], [place], [place], [id number] , [place]. tel:[phone] Referring Provider: [facility] [address] [place], [address]. tel:[phone] Office/Outpat ient Visit,New, Mod [facility], [address], [facility], [id number], [place] tel:[phone] [facility] [place] [facility] Skyler Sanchez [facility], [address], [place], [place], [address] , . tel:[phone] Referring Provider: Denise Collins, [address], [address]. tel:[phone] Family History Family Member Type Diagnosis Age At Onset No Information Payers Payer name Insurance type Covered libertarian ID Authorweroa dlyan(s) [employer] [id number] Social History Type Description Quantity Date Captured Comments Alcohol Use Details Unknown Caffeine Use Details Unknown Tobacco Use Status No Information Smoking Status No Information Sex Female Vital Signs Date / Time: Height Weight BMI Pulse Rate Blood Pressure Temperature Respiratory Rate Body Surface Area Head Circumference Head Circ. Percentile Wt./Douglas. Percentile BMI percentile Pulse Ox Inhaled Ox 11:01 AM 57.87 in 53.070 kg (117.00 lbs) 24.5 6 kg/m eter (2) Chief Complaint And Reason For Visit No Information Reason For Referral Reason For Referral No Information Plan Of Treatment Date Type Action Status Future Order: Radiology Order AP /Lat/Flex/Ext Lumb (APLatFlExL), Ordered on: Ordered History Of Present Illness Encounter Date Complaint History Of Prese nt Illness No Information Functional Status Date Functional Assessmen t No Information Instructions Date Instruction Additional Infor mation No Information Assessments Type Assessment Date assessment Arthrodesis status Patient Care Teams Name Effective Dates (start - stop) Status Members No Information
--- OUTSIDE RECORDS SUMMARY | 2024-01-04 09:46 | XMS_ITS | Clinical Summary ---
Author Name Unknown Organization [facility] Address [address] [place] [address] Care Team Providers Care Power Machine Operator Name Role Phone Denise Castillo MD Primary Care Provider [phone] Source Comments You are receiving this document as you are listed as the primary care provider,follow-up provider, or the patient has been referred to you for consultation.This is in compliance with the Medicare and[facility] EHR Incentive Program,which states Providers who transition their patient to another setting of careor provider of care or refers their patient to another provider of care shouldprovide summary care record for each transition of care or referral. [facility] Allerg[facility] No known active allergies Medications Medication Sig Dispensed Refills Start Date End Date Status naproxen (AKA NAPROSYN) 250 MG tablet Take 1 tablet by mouth daily (every 24 hours). LW Addl Instr:Indicated for: Arthritis 180 3 07/14/2005 Active venlafaxine (EFFEXOR) 37.5 MG tablet Take 1 Tablet by mouth two times a day. 180 Tablet 3 12/22/2018 Active progesterone micronized (PROMETRIUM) 100 MG capsule Take 1 Capsule by mouth daily. 90 Capsule 3 12/22/2018 Active estradiol (VIVELLEDOT) 0.05 MG/24HR biweekly patch Apply 1 Patch to skin two times a week. 12/22/2018 Active omeprazole (PRILOSEC) 20 MG capsule Take 1 Capsule by mouth daily. Take 1 hour before a meal. 90 Capsule 3 12/22/2018 Active celecoxib (CELEBREX) 200 MG capsule Take 1 Capsule by mouth daily. 12/22/2018 Active acyclovir (ZOVIRAX) 400 MG tablet Take 1 Tablet by mouth three times a day as needed. 12/22/2018 Active desogestrel-ethinyl estradiol (KARIVA) 0.15-0.02/0.01 MG (17/01) tablet Take 1 Tablet by mouth daily. 90 Tablet 3 12/22/2018 Active TURMERIC OR Active loratadine (CLARITIN) 10 MG tablet Take 10 mg by mouth daily. Active omega-3 fatty acids (MAXEPA,FISHOIL) 1000 MG capsule Take 2 g by mouth daily. Active Glucosamine-Chondro it-Vit C-Mn (GLUCOSAMINE 1500 COMPLEX OR) Active valACYclovir (VALTREX) 1 g tablet Take 1 Tablet by mouth two times a day. 01/27/2019 Active Active Problems Problem Noted Date Diagnosed Date Depression 01/13/2019 Back pain 01/13/2019 Postmenopausal status (age-related) (natural) Family history of rheumatoid arthritis 9 Neck pain 01/13/2019 Social History Tobacco Use Types Packs/Day Years Used Date Smoking Tobacco: Former Smokeless Tobacco: Never Alcohol Use Standard Drinks/Week Comments Never 0 (1 standard drink = 0.6 oz pur e alcohol) AUDIT-C Answer Date Recorded Frequency of Alcohol Consumption Never 01/27/2019 Average Number of Drinks Not on file 019 Frequency of Binge Drinking Not on file 12/30 Sex and Gender Information Value Date Recorded Sex Assigned at Not on file Gender Identity Not on file Sexual Orientation Not on file Last Filed Vital Signs Vital Sign Reading Time Taken Comments Blood Pressure 115/63 01/27/2019 10:49 AM CDT Pulse 79 01/27/2019 10:49 AM CDT Temperature 36.3 ??C (97.3 ??F) 07/14/2005 1 2:01 PM LOSS PREVENTION LEAD ORAL C: 36.3 C Respiratory Rate 16 07/14/2005 12:0 1 PM LOSS PREVENTION LEAD Oxygen Saturation - - Inhaled Oxygen Concentration - - Weight 50.3 kg (111 lb) 01/27/2019 10:4 9 AM CDT Height - - Body Mass Index - - Plan of Treatment Health Maintenance Due Date Last Done Comments Cervical Cancer Screening Due 1967 Colon Cancer Screening Plan Due 1967 Hep C Screening (Preventive Services) 1967 Mammogram 1967 HIV Screening (Preventive Services) 1983 Adult Preventive Visit 1985 HepB (1) 1986 Cholesterol 2012 COVID-19 Vaccine ( season) 2023 02/15/2021, 01/25/2021 Influenza (Season Ended) 2024 020, 06/29/2019, 06/19/2018, Additional history exists DTaP/Tdap/Td (2 - Tdap) 02/15/2025 02/15/2015 Zoster/Shingles Completed 11/05/2019, 07/14/2019 HepA Aged Out No longer eligi ble based on patient's age to complete this topic Hib Aged Out No longer eligi ble based on patient's age to complete this topic IPV (Polio) Aged Out No longer eligi ble based on patient's age to complete this topic MCV4 Aged Out No longer eligi ble based on patient's age to complete this topic Pneumococcal Aged Out No longer eligi ble based on patient's age to complete this topic Care Teams Power Machine Operator Relationship Specialty Start Date End Date Denise Castillo MD [address] [place] [id number] PCP - General Family Practice 12/14/18
== END 2024-01-04 09:43 | disposition home or self-care (01) ==
LOC: INJ CL 09:43
PROVIDERS: PCP Physician Assistant Medical; Visit Provider Family Medicine
DX: M54.16 Radiculopathy, lumbar region (principal); M51.36 Other intervertebral disc degeneration, lumbar region
CPT/HCPCS: 64483; J1100; Q9966

== ENCOUNTER 2024-02-24 12:29 | Outpatient (CLI) | payer MEDICAID, SELFPAY ==
--- NOTE | 2024-02-24 13:00 | CRLHL7_ITS ---
For Patients: As a result of the Century Cures Act, medical imaging exams and procedure reports are released immediately into your electronic medical record. You may view this report before your referring provider. If you have questions, please contact your health care provider. DXA BONE MINERAL DENSITY STUDY Reason for exam: Osteoporosis. 1. Have you had a previous hip or vertebral fracture? No. 2. Have you had any fractures during your adult life which did not result from significant trauma (e.g., auto accident)? No. 3. Did either of your parents have a hip fracture? No. 4. Do you smoke? No. 5. Have you ever taken Glucocorticoids? No. 6. Do you have rheumatoid arthritis? No. 7. Do you have secondary osteoporosis? No. 8. Do you drink 3 or more alcoholic drinks per day? No. 9. Are you being treated for osteoporosis? Yes. 10. Have you ever taken any of the following medications: Actonel, Evista, Fosamax, Miacalcin, Reclast, Boniva, Forteo, HRT (i.e., estrogen/hormone therapy), Protelos, Prolia, Vitamin D, Calcium, other ??? please specify. ANSWER: Yes, Vitamin D, Boniva (i.e., ibandronate), and calcium. 11. Do you have any of the following medical conditions: Anorexia or bulimia, asthma or emphysema, end stage renal disease, hyperparathyroidism, any seizure disorders, cancer, inflammatory bowel diseases, hysterectomy, other ??? please specify. ANSWER: Yes, lumbar spine fusion February 2023. 12. What was your maximum height (inches)? 4???10?. 13. Do you perform weight bearing exercise regularly? No. 14. Do you regularly consume dairy products? Yes. 15. Do you drink caffeinated beverages? Yes. 16. At what age did your period start? 14. 17. Are you premenopausal? No. 18. How many full-term pregnancies have you had? 1. 19. Have you ever missed your period for more than 6 months in a row (not including or menopause)? No. TECHNIQUE: Bone mineral density study was performed using the [employer]. FINDINGS: The results of the study expressed as bone mineral density (BMD) are as follows: Neck Left: BMD: 0.551 g/cm2. T-score: -2.7. Z-score: -1.6 Right: BMD: 0.562 g/cm2. T-score: -2.6. Z-score: -1.5 Total Left: BMD: 0.743 g/cm2. T-score: -1.6. Z-score: -0.8 Right: BMD: 0.766 g/cm2. T-score: -1.4. Z-score: -0.6 IMPRESSION: Osteoporosis. *Comparison exams done prior to 01/2020 were performed on different unit, [employer]. COMPARISON: Compared with scan of 06/04/2016, the bone mineral density has decreased by 6.2 percent at the hip. Compared with scan of 07/29/2015, the bone mineral density has increased by 0.5 percent at the hip. Bryce Yao M.D. Diagnostic Radiologist [email or web address] VADIM/[email or web address] lindsey/Dictated by: Bryce Yao MD @ 02/28/2024 9:06:00 AM (Electronically Signed)
== END 2024-02-24 12:30 | disposition home or self-care (01) ==
PROVIDERS: PCP Physician Assistant Medical; Visit Provider Emergency Medicine
DX: Z13.820 Encounter for screening for osteoporosis (principal); M81.0 Age-related osteoporosis without current pathological fracture
CPT/HCPCS: 77080

== ENCOUNTER 2024-03-22 09:38 | Outpatient (CLI) | payer MEDICAID, SELFPAY ==
--- OUTSIDE RECORDS SUMMARY | 2024-03-22 09:41 | XMS_ITS | Continuity of Care Document ---
Author Organization [facility] Address [address] [place] [address] Phone Care Team Providers Care Patient Assistant Name Role Phone Marlene Cabrales MD Unavailable Unavailable Allergies, Adverse Reactions, Alerts Substance Reaction Status Criticality No Known Allergies Active No Inform ation Medications Medication Instructions Dosage Effective Dates (start - stop) Status Comments methocarbamol 500 mg tablet take 1-2 Tablet by ORAL route every 6 hours as needed for muscle spasms - Active HYDROCODONE-ACETAMIN OPHEN (unknown strength) Not Available - Active GABAPENTIN (unknown strength) Not Available - Active GABAPENTIN (unknown strength) Not Available - Active ACETAMINOPHEN (unknown strength) Not Available - Active CELEBREX (unknown strength) Not Available - Active Procedures Procedure Date Office/Outpatient Visit,Est, Mod 2023 X-Ray Exam Lower Spine 2-3 Views 2023 Office/Outpatient Visit,Est, Low 2023 OFFICE/OUTPATIENT VISIT EST Phone Postop Followup [...] Providers Copied on Encounter Office/Outpat ient Visit,Est, Mod [facility], [address], [place], [id number], [place] tel:[phone] [facility] Spinal stenosis, lumbar region with neurogenic claudication Spondylolist hesis, lumbar region 4 Keron Hurd [facility], [address], [facility] [place], [id number] , [place]. tel:[phone] Referring Provider: Denise Collins [facility] [address] [place], [address]. tel:[phone] Office/Outpat ient Visit,Est, Low [facility], [address], [place], [id number], [place] tel:[phone] [facility] Arthrodesis status 4 Mehbod Amir. [facility], [address] [place] [address] 600, [place], [place], [id number] , [place]. tel:[phone] Ref[facility]: [facility] [address] [place], [address]. tel:[phone] OFFICE/OUTPAT IENT VISIT EST Phone [facility], [address], [facility] [place], [id number], [place] tel:[phone] [facility] No Information 4 Mehbod Amir. [facility], [address] [place] [address] 600, [place], [place], [id number] , [place]. tel:[phone] Referring Provider: [facility] [address] [place], [address]. tel:[phone] [facility], [address], [facility] [place] [id number], [place] tel:[phone] [facility] Arthrodesis status 3 Mehbod Amir. [facility], [address] [place] [address] 600, [place], [place], [id number] , [place]. tel:[phone] Referring Provider: [facility] [address] [place], [address]. tel:[phone] [facility], [address], [place], [id number], [place] tel:[phone] [facility] Encounter for other specified surgical aftercare 3 Ihsan Pathak. [address] [place] [address] 600, [facility] [place], [id number] , [place]. tel:[phone] Referring Provider: Denise Collins [facility] [address] [place], [address]. tel:[phone] [facility], [address], [place], [id number], [place] tel:[phone] [facility] No Information 3 Mehbod Amir. [facility], [address] [place] [address] [address], [facility] [place], [id number] , [place]. [phone] [facility], [address], [place], [id number], [place] tel:[phone] [facility] No Information 3 Ecjessicaeboni Pathak. [address] [place] [address], [id number] , [place]. tel:[phone] Referring Provider: [facility] [address] [place], [address]. tel:[phone] [facility], [address], [place], [id number], [place] tel:[phone] [facility] No Information 3 Mehbod Amir. [facility], [address] [place] [address] 600, [place], [place], [id number] , [place]. tel:[phone] Referring Provider: [facility] [address] [place], [address]. tel:[phone] OFFICE/OUTPAT IENT VISIT EST Phone [facility], [address], [place], [id number], [place] tel:[phone] [facility] No Information 3 Ihsan Lawson. [address] [place] [address], [id number] , [place]. tel:[phone] Referring Provider: [facility] [address] [place], [address]. tel:[phone] Office/Outpat ient Visit,Est, Mod [facility], [address], [place], [id number], [place] tel:[phone] [facility] No Information 3 Keron Rosario. [facility], [address], [place], [id number] , [place]. tel:[phone] Referring Provider: Denise Collins [facility] [address] [place], [address]. tel:[phone] Physician Telephone Evaluation 11-20 Min [facility], [address], [place], [id number], [place] tel:[phone] [facility] No Information 2 Ihsan Pathak. [address] [place] [address] [place], [id number] , [place]. tel:[phone] Referring Provider: [facility] [address] [place], [address]. tel:[phone] OFFICE/OUTPAT IENT VISIT EST Phone [facility], [address], [place], [id number], [place] tel:[phone] [facility] No Information 2 Ihsan Pathak. [address] [place] [address], [place], [place], [id number] , [place]. tel:[phone] Referring Provider: Denise Collins [facility] [address] [place], [address]. tel:[phone] [facility], [address], [place], [id number], [place] tel:[phone] [facility] Encounter for other specified surgical aftercare 2 Ihsan Pathak. [address] [place] [address] [place], [id number] , [place]. tel:[phone] Referring Provider: [facility] [address] [place], [address]. tel:[phone] [facility], [address], [place], [id number], [place] tel:[phone] [facility] Encounter for other specified surgical aftercare 2 Mehbod Amir. [facility], [address] [place] [address], [place], [place], [id number] , [place]. tel:[phone] Referring Provider: [facility] [address] [place], [address]. tel:[phone] [facility], [address], [place], [id number], [place] tel:[phone] [facility] No Information 2 Ecmode Pathak. [address] [place] [address] 600, [place], [place], [id number] , [place]. tel:[phone] Referring Provider: [facility] [address] [place], [address]. tel:[phone] [facility], [address], [place], [id number], [place] tel:[phone] [facility] No Information 2 Mehbod Amir. [facility], [address] [place] [address] [address], [place], [place], [id number] , [place]. tel:[phone] Referring Provider: [facility] [address] [place], [address]. tel:[phone] Office/Outpat ient Visit,Est, Mod [facility], [address], [place], [id number], [place] tel:[phone] [facility] No Information 2 Mehbod Amir. [facility], [address] [place] [address], [place], [place], [id number] , [place]. tel:[phone] Referring Provider: Eulogio [address], [address]. tel:[phone] Office/Outpat ient Visit,Est, Mod [facility], [address], [place], [address], [place] tel:[phone] [facility] Skyler Ger. [facility] [place], [address] [place] [address], [facility], [id number] , [place]. tel:[phone] Referring Provider: [facility] [address] [place], [address]. tel:[phone] Office/Outpat ient Visit,Est, Mod [facility], [address], [place], [address], [place] tel:[phone] [facility] No Information Skyler Cyr. [facility], [address] [place] [address], [facility], [place], [id number] , [place]. tel:[phone] Referring Provider: [facility] [address] [place], [address]. tel:[phone] [facility], [address], [place], [id number], [place] tel:[phone] [facility] Skyler Cyr. [facility], [address] [place] [address], [facility], [place], [id number] , [place]. tel:[phone] Referring Provider: [facility] [address] [place], [address]. tel:[phone] Office/Outpat ient Visit,New, Mod [facility], [address], [place], [id number], [place] tel:[phone] [facility] Skyler Cyr. [facility], [address] [place] [address], [facility], [id number] , [place]. tel:[phone] Referring Provider: Densie Collins, [address], [address]. tel:[phone] Family History Family Member Type Diagnosis Age At Onset No Information Payers Payer name Insurance type Covered alliance party ID Ca richardson(s) Chris Thompson 2021 CI [id number] Social History Type Description Quantity Date Captured Comments Alcohol Use Details Unknown Caffeine Use Details Unknown Tobacco Use Status No Information Smoking Status Former smoker Non-Smoking Tobacco Use Details : No Details Available : No Details Available Sex Female Vital Signs Date / Time: Height Weight BMI Pulse Rate Blood Pressure Temperature Respiratory Rate Body Surface Area Head Circumference Head Circ. Percentile Wt./[place]. Percentile BMI percentile Pulse Ox Inhaled Ox 9:26 AM 58.00 in 53.977 kg (119.00 lbs) 24.8 7 kg/m eter (2) Chief Complaint And Reason For Visit No Information Reason For Referral Reason For Referral No Information Plan Of Treatment Date Type Action Status Appointment Anay Rowan BOOKED Appointment Anay Rowan BOOKED Appointment Anay Rowan BOOKED Future Order: Radiology Order AP /Lat/Flex/Ext Lumb (APLatFlExL), Ordered on: Ordered History Of Present Illness Encounter Date Complaint History Of Prese nt Illness No Information Functional Status Date Functional Assessmen t No Information Instructions Date Instruction Additional Infor mation No Information Assessments Type Assessment Date assessment Spinal stenosis, lumbar region w ith neurogenic claudication assessment Spondylolisthesis, lumbar region Patient Care Teams Name Effective Dates (start - stop) Status Members No Information
--- OUTSIDE RECORDS SUMMARY | 2024-03-22 09:41 | XMS_ITS | Continuity of Care Document ---
Author Organization [facility] Address [address] [place] [address] Phone Care Team Providers Care Director Of Agronomy Name Role Phone Will Prasanna REDDY Unavailable Unavailabl e Allergies, Adverse Reactions, Alerts Substance Reaction Status Criticality Penicillanic Sulfone BL Beta -Lactamase Inhibitors Difficulty swallowing Active No Information Medications Medication Instructions Dosage Effective Dates (start - stop) Status Comments oxycodone 5 mg tablet Take 1 Tablet (5 m g) by mouth every 4 hours if needed [...] g by mouth once daily. - Active Procedures Procedure Date OFFICE/OUTPATIENT VISIT, NEW Drug test def 8-14 classes Drug Urine Toxology With Chromatography Advance Directives Directive Yes / No Effective Date File Name No Information Encounters Encounter Description Practice Location Reason(s) For Visit Diagnoses Date Provider Providers Copied on Encounter [facility], [address] [place] [address], [id number] , [place] tel:[phone] [facility] No Information 4 Mohsen Mims. [address] [place], [place], [id number], [place]. tel:[phone] OFFICE/OUTPA TIENT VISIT, [facility], [address] [place] [address], [id number] , [place] tel:[phone] [facility] low back pain (chief complaint) Chronic pain syndromePostlami nectomy syndrome, not elsewhere classifiedLong term (current) use of opiate analgesicSpondyl olisthesis, lumbar regionCervicalgi aEncounter for therapeutic drug level monitoring 4 James Mtz. [address], [place], [place], [id number], [place]. tel:[phone] Referring Provider: Eulogio Sharpe [facility] [address] [place], [address]. tel:[phone] [facility], [address] [place] [address], [id number] , [place] tel:[phone] [facility] No Information 4 Esther Sanders. [address] [place] [address] [address] [facility] [address], [place], [place], [id number], [place]. tel:[phone] Family History Family Member Type Diagnosis Age At Onset No Information Payers Payer name Insurance type Covered constitution party ID Ca richardson(shan Perez Individual And Family Plans [id number] Social History Type Description Quantity Date Captured Comments Alcohol Use Details Unknown Caffeine Use Details Unknown Tobacco Use Status No Information Smoking Status No Information Sex Female Chief Complaint And Reason For Visit No Information Reason For Referral Reason For Referral No Information Plan Of Treatment Date Type Action Status Goal Order Annual PT. Due on due Goal Creatinine. Due on due Goal AST (SGOT). Due on due Goal PHONE TRIAGE SPECIALIST Scanned. Due on due Goal FIRE SUPPORT SPECIALIST Paperwork. Due on due Goal OARS. Due on due Goal ALT (SGPT). Due on due Goal UDT. Due on due Goal Medication Reconciliation. D ue on due Goal Zoster vaccine (1st). Due on due Goal Lipid panel. Due on due Goal CT-Colonography. Due on due Goal FIT. Due on due Goal Height. Due on d ue Goal Review Allergy List. Due on due Goal Update Social History. Due o n due Goal Unhealthy drug use screening . Due on due Goal Tobacco Use. Due on due Goal HPV. Due on due Goal Weight. Due on d ue Goal PHQ-9. Due on du e Goal Hepatitis C screening. Due o n due Goal FIT-DNA. Due on due Goal AST (SGOT). Due on due Goal Creatinine. Due on due Goal UDT. Due on due Goal OARS. Due on due Goal Order Annual PT. Due on due Goal FIRE SUPPORT SPECIALIST Paperwork. Due on due Goal PHONE TRIAGE SPECIALIST Scanned. Due on due Goal ALT (SGPT). Due on due Goal Tobacco Use. Due on due Goal FIT. Due on due Goal Weight. Due on d ue Goal Lipid panel. Due on due Goal Height. Due on d ue Goal Unhealthy drug use screening . Due on due Goal FIT-DNA. Due on due Goal PHQ-9. Due on du e Goal Review Allergy List. Due on due Goal Hepatitis C screening. Due o n due Goal CT-Colonography. Due on due Goal Medication Reconciliation. D ue on due Goal HPV. Due on due Goal Update Social History. Due o n due Goal Zoster vaccine (1st). Due on due History Of Present Illness [...] evaluation of the patient. Outside records from [facility] are available for review. She presents with her , who participates in discussion of care.Melina is a 58 y/o female here for initial consult for low back and BL leg pain, referred by Dr. Eulogio Sharpe through [facility]. Pain gradually started in 2021, but has worsened since L5-S1 fusion in 03/10/23. She describes pain as aching, heaviness, burning, sharp, and numbness and rates the pain severity 7/10.Reports an L5-S1 fusion on 03/10/[address] Marlene Cabrales through [facility]. Also has hx of C4-C6 [...] is interested in all treatment options through [facility]. No other concerns today. Functional Status Date Functional Assessmen t No Information Instructions Date Instruction Additional Infor mation No Information Assessments Type Assessment Date No Information Patient Care Teams Name Effective Dates (start - stop) Status Members No Information
--- OUTSIDE RECORDS SUMMARY | 2024-03-22 09:42 | XMS_ITS | Clinical Summary ---
Author Organization [facility] Address [address] [place] [address] Care Team Providers Care Staff Development Coordinator Name Role Phone Denise Castillo MD Primary Care Provider [phone] Source Comments You are receiving this document as you are listed as the primary care provider,follow-up provider, or the patient has been referred to you for consultation.This is in compliance with the Medicare and[facility] EHR Incentive Program,which states Providers who transition their patient to another setting of careor provider of care or refers their patient to another provider of care shouldprovide summary care record for each transition of care or referral. [facility] Allerg[facility] No known active allergies Medications Medication [...] ??C (97.3 ??F) 07/14/2005 1 2:01 PM VARNISH SUPERVISOR ORAL C: 36.3 C Respiratory Rate 16 07/14/2005 12:0 1 PM VARNISH SUPERVISOR Oxygen Saturation - - Inhaled Oxygen Concentration [...] Vaccine ( season) 2023 02/15/2021, 01/25/2021 Influenza (#1) 2024 05/04/2020, 06/01, 06/19/2018, Additional history exists DTaP/Tdap/Td (2 - [...] age to complete this topic Care Teams Staff Development Coordinator Relationship Specialty Start Date End Date Denise Castillo MD [address] [place] [address] PCP - General Family Practice 12/14/18
--- OUTSIDE RECORDS SUMMARY | 2024-03-22 09:42 | XMS_ITS | Clinical Summary ---
Author Organization [employer] [facility] Address [place], [place] [address] Care Team Providers Care Cream Gatherer Name Role Phone Ayaka Cramer PA-C Primary Care Provider [phone] Allergies Active Allergy Reactions Criticality Noted Date Comments Amoxicillin Throat Swelling/Closing High 03/09/2023 ##Pharmacist completed allergy assessment. Allergy determined to be low risk. Will likely tolerate cefazolin, as it does not share a side chain with amoxicillin and risk for cross-reactivity is low. Pt received Ancef doses on 08/11/21 and 01/13/22 - No reaction noted at that time. [facility] Medication Sig Dispensed Refills Start Date [...] by mouth two times daily. 03/01/2023 Active [id number]-2-[id number]-FISH OIL ORAL Take by mouth. Active fexofenadine [...] for 3 months. 1 Each 03/12/2023 Active oxyCODONE (ROXICODONE) 5 mg immediate release [...] acetaminophen 4000mg in 24 hours. 120 Tablet 03/15/2024 Active gabapentin (NEURONTIN) 600 mg tabletIndications: Lumbar radiculopathy Take 1 Tablet (600 mg) by mouth three times daily. 90 Tablet 5 03/22/2024 Active methocarbamoL (ROBAXIN) 500 mg tabletIndications: Acute postoperative pain Take 1-2 Tablets (500-1,000 mg) by mouth every 6 hours if needed for Muscle Spasm. 60 Tablet 3 03/22/2024 Active methocarbamoL (ROBAXIN) 500 mg tabletIndications: Acute postoperative pain Take 1-2 Tablets (500-1,000 mg) by mouth every 6 hours if needed for Muscle Spasm. 60 Tablet 3 07/26/2023 03/22/20 24 Discontinu ed(Reorder (E-cancel not sent)) gabapentin (NEURONTIN) 600 mg tabletIndications: Lumbar radiculopathy Take 1 Tablet (600 mg) by mouth three times daily. 90 Tablet 5 10/06/2023 03/22/20 Discontinu ed(Reorder (E-cancel not sent)) HYDROcodone-acetam inophen (10-325 mg/tablet)Indicati ons:Lumbar radiculopathy,S/P lumbar fusion,Lumbar facet arthropathy,Lumbar foraminal stenosis Take 1 Tablet by mouth every 4 hours if needed for Pain. Max acetaminophen 4000mg in 24 hours. 120 Tablet 02/03/2024 02/23/20 24 Discontinu ed(Reorder (E-cancel not sent)) HYDROcodone-acetam inophen (10-325 mg/tablet)Indicati ons:Lumbar radiculopathy,S/P lumbar fusion,Lumbar facet arthropathy,Lumbar foraminal stenosis Take 1 Tablet by mouth every 4 hours if needed for Pain. Max acetaminophen 4000mg in 24 hours. 120 Tablet 02/23/2024 03/15/20 Discontinu ed(Reorder (E-cancel not sent)) Active Problems Problem Noted Date Diagnosed Date Controlled substance agreement signed 09/22/2023 Overview: Controlled substance agreement signed on 09/22/[address] Eulogio Sharpe MD UDS not on file TAPE TRANSFERRER: 03/15/2024 S/P lumbar fusion 03/11/2023 Acute postoperative pain 03/10/2023 Vitamin D insufficiency 01/13/2022 Back pain 05/31/2015 Urinary incontinence 06/29/2011 Overview: (Problem list name updated by automated process. Provider to review and confirm.) Hyperlipidemia LDL goal <160 01/14/2011 Esophageal reflux 06/10/2007 Sciatica 06/10/2007 Encounters Date Type Department Care Team Description 02/11/2024 Orders Only [facility] [address] [place] [address] Eulogio Sharpe MD 1 scan: (1-Ord) [facility], OPEN UPRIGHT LUMBAR SPINE, 02/05/2024 01/26/2024 Medical Messaging [facility] [address] [place] [address] Eulogio Sharpe MD Letter 01/25/2024 Telephone [facility] [address] [place] [address] Eulogio Sharpe MD Letter 01/04/2024 10:20 AM CDT Office Visit [facility] at [address] [facility] [place] [id number] Eulogio Sharpe MD Procedure (Bilateral L4-5 TFESI) 01/03/2024 Travel from Last 3 Months Family History Medical [...] (116 lb 9.6 oz) 07/21/2023 11:04 AM [employer] shoes and jacket on Height 147.3 cm (4' 10) 03/10/2023 7:5 7 AM CDT Body Mass Index 24.37 03/10/2023 7:57 AM CDT Plan of Treatment Upcoming Encounters Date Type Department Care Team (Latest Contact Info) Description 03/27/2024 8:40 AM CDT Office Visit [facility] [address] [place] [address] Eulogio Sharpe MD [address] [place] [address] 04/04/2024 11:15 AM CDT Hospital Encounter [facility] [address] [place] [address] Marlene Cabrales MD [address] [place] [address] 04/04/2024 11:15 AM CDT - 04/04/2024 2:46 PM CDT Surgery [facility] [address] [place] [address] Marlene Cabrales MD [address] [place] [address] DECOMPRESSION LATERAL RECESS L4 TO L5, FUSION POSTERIOR SPINE L4 TO L5, TRANSFORAMINAL LUMBAR INTERBODY FUSION L4 TO L5, Scheduled Procedures Name Priority Associated Diagnoses Date/Ti me FUSION TRANSFORAMINAL SPINAL INTERBODY LEVEL 1 Class E Urgent Spinal stenosis, lumbar region, with neurogenic claudication Spondylolisthesis of lumbar region 04/04/2024 11:15 AM CDT Health Maintenance Due Date Last Done Comments [...] of 2) 2017 COVID-19 vaccine series ( - 2022- season) 2023 02/15/2021, 01/25/2021 Influenza for age 50-64 04/30/2024 Pap test for age 21-65 05/25/2025 , 05/25/2022, 06/24/2017, Additional history exists Pneumococcal series for age 6-64 Aged Out No longer eligible based on patient's age to complete this topic Medical Devices Implanted Type Area Conche Loader And Unloader Device Identifier Shelf Expiration Date Model / Serial / Lot 3.0 Mm Headless Compression Pt Screws Implanted:Qty: 1 on 08/11/2021 by Rocael Daily DPM at [facility] Right: Foot [employer] [id number]-8630-26 / / [id number] Low Profile Mtp Plate, Contoured, Right, Titanium Implanted:Qty: 1 on 08/11/2021 by Rocael Daily DPM at [facility] Right: Foot [employer] AR-8944CR-P / / [id number] 3.0mm Low Profile Screws, Cortical, Titanium Implanted:Qty: 2 on 08/11/2021 by Rocael Daily DPM at [facility] Right: Foot CA-8933-16 / / [id number] 3.0 Mm Carito Screws, Titanium Implanted:Qty: 2 on 08/11/2021 by Rocael Daily DPM at [facility] Right: Foot CA-8933V-14 / / [id number] 3.0 Mm Carito Screws, Titanium Implanted:Qty: 1 on 08/11/2021 by Rocael Daily DPM at [facility] Right: Foot [id number]-16 / / [id number] 6bone Cerv 6mm 4 Deg Stefani W/P Implanted:Qty: 1 on 01/13/2022 by Marlene Cabrales MD at [facility] Explanted:at [facility] (Quantity not on file) N/A: Spine Stefani Spine 04/15/2025 [id number] / [id number] / [place] View Self Starting Variable Screw 4.0x12mm Implanted:Qty: 6 on 01/13/2022 by Marlene Cabrales MD at [facility] N/A: Spine [id number] / / Description:OZARK VIEW SELF STARTING VARIABLE SCREW 4.0X12MM [id number] 6bone Cerv 6mm 4 Deg Immaculata W/P Implanted:Qty: 1 on 01/13/2022 by Marlene Cabrales MD at [facility] Explanted:at [facility] (Quantity not on file) N/A: Spine Immaculata Spine 09/01/2023 [id number] / [id number] / [id number] one Matrix 1cc [place] Plus Paste Dbm Implanted:Qty: 1 on 01/13/2022 by Marlene Cabrales MD at [facility] Explanted:at [facility] (Quantity not on file) N/A: Spine Medtronic Spine/Ortho 10/01/2023 [id number] / [id number] / [place] View Anterior Cervical Plates Constrained 2 Level 34 Mm Implanted:Qty: 1 on 01/13/2022 by Marlene Cabrales MD at [facility] N/A: Spine [id number] / / Description:OZARK VIEW Anter ior Cervical Plates Constrained 2 Level 34 mm Bone 1-4mm 30cc Medtronic Chips Canclls Freeze Dried - [id number] Implanted:Qty: 1 on 03/10/2023 by Marlene Cabrales MD at [facility] N/A: Spine Medtronic Spine/Ortho 10/27/2026 [id number] / [id number] / Bone Matrix 3cc [place] Dbf Putty Dbm - [id number] Implanted:Qty: 1 on 03/10/2023 by Marlene Cabrales MD at [facility] N/A: Spine Medtronic Spine/Ortho 01/07/2025 [id number] / [id number] / Spacer Lmbr 9x26mm Capstone Tlif Peek - [id number] Implanted:Qty: 1 on 03/10/2023 by Marlene Cabrales MD at [facility] N/A: Spine Medtronic Spine/Ortho 11/08/2023 [id number] / / [id number] Set Screw Lmbr Ant 5.5mm Solera Break Off - [id number] Implanted:Qty: 4 on 03/10/2023 by Marlene Cabrales MD at [facility] N/A: Spine Medtronic Spine/Ortho [id number] / / Sedrick Lmbr 35x5.5mm Solera 5.5/6 Cvd Titnm - [id number] Implanted:Qty: 1 on 03/10/2023 by Marlene Cabrales MD at [facility] N/A: Spine Medtronic Spine/Ortho [id number] / / Sedrick Lmbr 40x5.5mm Solera 5.5/6 Cvd Titnm - [id number] Implanted:Qty: 1 on 03/10/2023 by Marlene Cabrales MD at [facility] N/A: Spine Medtronic Spine/Ortho [id number] / / Screw Lmbr Post 6.5x40mm Solera 5.5/6 Va Cocr - [id number] Implanted:Qty: 2 on 03/10/2023 by Marlene Cabrales MD at [facility] N/A: Spine Medtronic Spine/Ortho [id number] / / Screw Lmbr Post 6.5x45mm Solera 5.5/6 Va Cocr - [id number] Implanted:Qty: 2 on 03/10/2023 by Marlene Cabrales MD at [facility] N/A: Spine Medtronic Spine/Ortho [id number] / / Procedures Procedure Name Priority Date/Time Associated Diagnosis Comments MR SPINE LUMBAR WO Routine 02/05/2024 12 :00 AM CDT Lumbar radiculopathy S/P lumbar fusion Lumbar facet arthropathy Lumbar foraminal stenosis AMB EPIDURAL STEROID INJECTION Routine 01/04/2024 12:00 AM CDT Lumbar radiculopathy S/P lumbar fusion Lumbar facet arthropathy Lumbar foraminal stenosis HPV THIN PREP Routine 05/25/2022 1:50 PM CDT from Last 3 Months or Most Recently Relevant to Health Maintenance Results * MR SPINE LUMBAR WO (02/05/2024 12:00 AM CDT) Anatomical Region Laterality Modality Spine, LUMBAR SPINE Magnetic Res onance Eulogio Sharpe MD MR * AMB EPIDURAL STEROID INJECTION (01/04/2024 12:00 AM CDT) Eulogio Sharpe MD NEUROLOGY ORD * HPV HIGH RISK (05/25/2022 1:50 PM CDT) TYPE 16 Negative Negative 05/30/2022 12:33 PM CDT [facility] TYPE 18 Negative Negative 05/30/2022 12:33 PM CDT [facility] OTHER HIGH RISK TYPES Negative Negative 05/30/2022 12:33 PM CDT [facility] Other (Cervical/Vagina l) 05/25/2022 1:50 PM CDT 05/27/2022 3:27 PM CDT Narrative [facility] - 05/30/2022 12:33 PM CDT HPV types 16, 18, 31, 33, 35, 39, 45, 51, 52, 56, 58, 59, 66 and 68 DNA were undetectable or below the pre-set threshold. Methodology: Sigifredo Pamela 4800 HPV Test Karlene Peres MD MICROBIOLOGY [facility] [address] [place] [address], [place] from Last 3 Months or Most Recently [...] Preferences, Provider to review later Care Teams Cream Gatherer Relationship Specialty Start Date End Date Ayaka Cramer PA-C [address] [place] [address] PCP - General Emergency Medicine 01/14/23
== END 2024-03-22 09:39 | disposition home or self-care (01) ==
PROVIDERS: PCP Physician Assistant Medical; Visit Provider Emergency Medicine
DX: Z01.818 Encounter for other preprocedural examination (principal); E78.5 Hyperlipidemia, unspecified; M81.0 Age-related osteoporosis without current pathological fracture
CPT/HCPCS: 80048; 80061; 82306